=== PATIENT | male | born 1945 | race Caucasian/White ===

== ENCOUNTER 2016-02-13 14:17 | Inpatient (IN) | payer OTHER ==
[~2016-02-13 14:17] MED LIST: SALINE LOCK IV FLUID XX ONE; TYLENOL PO PRN
[2016-02-13] MEDS: GLUCOPHAGE PO SCH (18:07)
[2016-02-13] MEDS: PRILOSEC PO SCH (18:07)
[2016-02-13 18:35] LABS: MANUAL DIFF NEEDED? NO
[2016-02-13 18:37] LABS: BASO% 0.7 % (0.0-0.8); EOS% 5.2 % (0.0-10.0); HEMATOCRIT 30.8 % (42.0-52.0); HEMOGLOBIN 9.2 g/dL (14.0-18.0); LYMPH# 1.19 X1000 (1.2-3.4); LYMPH% 20.6 % (20.5-51.1); MCH 23.7 PG (27-31); MCHC 29.9 g/dL (33-37); MCV 79.2 FL (81-99); MONO# 0.72 X1000 (0.11-0.59); MONO% 12.4 % (1.7-9.3); MPV 10.1 FL (7.4-10.4); NEUT% 61.1 % (42.2-75.2); PLT 118 X1000 (130-400); RBC 3.89 XMIL (4.7-6.1)
[2016-02-13 18:47] LABS: INR 1.23; PROTIME 13.1 Seconds (9.2-11.7); PTT 27.9 Seconds (22.0-36.0)
[2016-02-13 18:59] LABS: AGAP 16; ALBUMIN 3.3 g/dL (3.5-5.0); ALKALINE PHOSPHATASE 84 U/L (32-122); BUN 16 mg/dL (8-22); CALCIUM 8.1 mg/dL (8.8-10.2); CHLORIDE 98 mmol/L (98-107); COSMO 278; GOT 38 U/L (10-34); GPT 24 U/L (10-44); MAGNESIUM 1.7 mg/dL (1.5-2.7); POTASSIUM 4.4 mmol/L (3.5-5.1); SODIUM 136 mmol/L (136-145); TCO2 22 mmol/L (25-35); TOTAL BILIRUBIN 1.55 mg/dL (0.20-1.00); TOTAL PROTEIN 6.1 g/dL (6.3-8.3)
[2016-02-13] MEDS: CORGARD PO SCH (21:17)
[2016-02-13] MEDS: LANTUS SUBQ SCH (21:18)
[2016-02-13] MEDS: LASIX IV SCH (21:19)
[2016-02-14] MEDS: PRILOSEC PO SCH ×2 (06:17→18:01)
[2016-02-14] MEDS ORDERED: INSULIN PEN NEEDLES ONE (07:47)
[2016-02-14] MEDS: GLUCOPHAGE PO SCH ×2 (09:10→16:32)
[2016-02-14] MEDS: LASIX IV SCH ×2 (09:10→21:57)
[2016-02-14] MEDS: KLOR-CON PO SCH (09:10)
--- NOTE | 2016-02-14 09:43 | PROGRESS NOTE ---
DATE: 02/14/2016 SUBJECTIVE: The patient has no complaints. He said he put out over a liter yesterday, through the evening and such. He was a little bit weak this morning, but otherwise feeling well. OBJECTIVE: Vital Signs: 98.7, 66, 18 and 131/61 with 98% saturation on room air. Fluid balance - 600 recorded in the chart. General: He is a well-developed, well-nourished, white male, in no acute distress. Respiratory: Patient has some basilar crackles. Good air movement. No wheezing. Cardiovascular: Regular. Extremities: Show 2+ edema. LABORATORIES: Yesterday's labs showed a hematocrit of 30.8. INR was slightly elevated at 1.2. Total bilirubin was 1.55. ProBNP 517. ASSESSMENT AND PLAN: 1. The patient's fluid overload status has cycled considerably over the last several months. For whatever reasons, outpatient therapy has not held him in any continuous or stable pattern. He was aggressively diuresed back in November, but has had gradual buildup of fluid despite treatment and the difficulties discerning whether his ischemic heart disease and modestly decreased ejection fraction are the culprit in his fluid overload versus his known history of cirrhosis causing ascites and lower extremity edema. The highest likelihood is a combination of both. I have consulted cardiology to help us design an outpatient regimen to keep this man out trouble. 2. The patient's diabetes is reasonably well controlled. 3. Cirrhosis. See above.
[2016-02-14] MEDS: BIDIL PO SCH ×2 (13:46→16:32)
--- NOTE | 2016-02-14 14:28 | CONSULTATION ---
DATE OF CONSULTATION: 02/14/2016 REASON FOR CONSULTATION: Edema. HISTORY: The patient is a very complex 70-year-old gentleman, with a history of non-alcoholic cirrhosis and portal hypertension. The patient has been having difficulties with recurring swelling of the lower extremities. The patient was aggressively diuresed several months ago. Per report, he actually was diuresed to the point that he had mild renal insufficiency. His medications have been adjusted and he has been slowly retaining fluid since that period of time. He states that during this period of time he has had increased abdominal girth with increased shortness of breath. This shortness of breath is most likely related to distention of the abdomen. The patient has not had orthopnea. He has not had overt chest pain. He has had weight gain associated with this. The patient does have a mild cardiomyopathy. Echocardiogram performed in October of this year indicated an ejection fraction of around 45-50%. The patient's heart is dilated with estimated intracardiac pressures appear to be stable and not markedly elevated. There did not appear to be significant pulmonary hypertension. PAST MEDICAL HISTORY: Again, the patient has non-alcoholic cirrhosis, followed by GI at [facility]. The patient most likely has underlying stable coronary disease. Nuclear stress test would indicate an anterior scar. There is mild wall motion abnormality on echo within this distribution as well. The patient has never had a stent or revascularization procedure. The patient has a history of type 2 diabetes treated medically. He has had mild hypertension treated medically. There is no history of dyslipidemia. He has no documented pulmonary or thyroid disease. No previously documented renal disease. SOCIAL HISTORY: No tobacco, alcohol, or illicit drug use. FAMILY HISTORY: Noncontributory. REVIEW OF SYSTEMS: He has been in good health. No recent illnesses. No fevers or chills.HEENT: No headache. No visual abnormalities. Chest: No palpitations, no orthopnea. Abdomen: No abdominal pain. No diarrhea. No constipation. Extremities: He has not had pain or erythema, just significant swelling. Neurological: No history of seizures, syncope, or stroke. PHYSICAL EXAMINATION: General: This is a well-developed male. He is awake and alert. He appears comfortable. HEENT: Benign. Neck: Supple. No obvious jugular venous distention. Chest: Bilateral breath sounds, which are clear. Slightly depressed, but no wheezing or crackles. Cardiovascular: Reveals a regular rate and rhythm. I hear no murmur. Abdomen: Distended. There may be mild hepatomegaly. Extremities: There is 2/4 pitting edema to the level of the knees. There is also chronic venous stasis changes. LABORATORY WORK: I have reviewed laboratory work. White count 5, hemoglobin and hematocrit 9.2 and 30. Platelet count is 118,000. INR is 1.23. Sodium 136, potassium 4.4, chloride 98, bicarb 22, BUN 16, creatinine 0.6. Glucose 179. Calcium 8.1, AST 38, ALT 24. Pro-B-type natriuretic peptide is not severely elevated at 517. Total protein is 6.1, albumin is 3.3. TSH is 2.88. IMPRESSION/PROBLEMS: Edema. This most likely represents primarily hepatic issue, in the setting of portal hypertension. Echocardiogram would indicate that cardiac status is relatively compensated. At this time I think it would not be unreasonable; however, to try optimize all preload and afterload conditions of the heart. We will add nitrates and hydralazine in the form of BiDil. This may hopefully unload the heart slightly and allow slightly better venous return into the heart to assist with the edematous state. I would continue Lasix. The patient has been on high-dose Aldactone in the past. We will discuss possibly restarting a lower dosage of this, at possibly 25 mg a day, as this would be the most optimal diuretic if patient's renal function will tolerate this. Certainly, if edema persists, then one could consider right heart catheterization to more accurately define right heart pressures. If these were markedly elevated, and we could not consistently diurese patient, then ultrafiltration would potentially be an option.
[2016-02-14] MEDS: ZOFRAN IV PRN ×2 (14:39→18:40)
[2016-02-14] MEDS: CORGARD PO SCH (21:57)
[2016-02-14] MEDS: LANTUS SUBQ SCH (22:06)
[2016-02-15] MEDS: PRILOSEC PO SCH ×2 (06:58→18:27)
[2016-02-15] MEDS: GLUCOPHAGE PO SCH ×2 (08:45→18:27)
[2016-02-15] MEDS: LASIX IV SCH ×4 (08:46→23:30)
[2016-02-15] MEDS: KLOR-CON PO SCH (08:46)
[2016-02-15] MEDS: BIDIL PO SCH ×3 (08:46→18:27)
[2016-02-15 09:49] LABS: MANUAL DIFF NEEDED? NO
[2016-02-15 09:53] LABS: BASO% 0.3 % (0.0-0.8); EOS% 1.3 % (0.0-10.0); HEMATOCRIT 28.9 % (42.0-52.0); HEMOGLOBIN 8.6 g/dL (14.0-18.0); IMM GRAN# 0.02 X1000 (0.0-0.04); IMM GRAN% 0.3 % (0.0-0.5); LYMPH# 1.11 X1000 (1.2-3.4); LYMPH% 14.2 % (20.5-51.1); MCH 23.7 PG (27-31); MCHC 29.8 g/dL (33-37); MCV 79.6 FL (81-99); MONO# 0.89 X1000 (0.11-0.59); MONO% 11.4 % (1.7-9.3); MPV 10.4 FL (7.4-10.4); NEUT% 72.5 % (42.2-75.2); PLT 114 X1000 (130-400); RBC 3.63 XMIL (4.7-6.1)
[2016-02-15 10:16] LABS: AGAP 16; BUN 29 mg/dL (8-22); CALCIUM 7.7 mg/dL (8.8-10.2); CHLORIDE 97 mmol/L (98-107); COSMO 281; POTASSIUM 4.7 mmol/L (3.5-5.1); SODIUM 135 mmol/L (136-145); TCO2 22 mmol/L (25-35)
[2016-02-15] MEDS ORDERED: IMODIUM PO ONE (11:25)
--- NOTE | 2016-02-15 12:22 | PROGRESS NOTE ---
DATE: 02/15/2016 SUBJECTIVE: The patient was sick and vomited twice yesterday. He also states he has diarrhea which even predated his hospitalization. He had never told me that before. He does not want any food and has very little appetite. He wants to try clear liquids because the food is unappetizing for him at the present time. He states his urine output has not been drastically accelerated with the use of IV Lasix. OBJECTIVE: Vital Signs: 97.8, 67, 124/46. PHYSICAL EXAMINATION: General: He is a well-developed, white male, in no acute distress. He sighs a lot as he is talking and breathing as if he is moderately short of breath. Lungs: Clear. Cardiovascular: Regular. Abdomen: Distended. Bowel sounds are present. He clearly has ascites. Extremities: He has 3+ edema in the lower extremities which is not appreciably diminished compared to his baseline examination. Neurologic: He is intact. LABORATORIES: BUN is elevated at 29. Creatinine 1.0. Blood sugar is well controlled. Hemoglobin is 8.6, hematocrit 28.9. Platelet count is 114,000. ASSESSMENT AND PLAN: 1. The patient's fluid overload status is likely multifactorial but the hepatic dysfunction is the primary route sales driver of the fluid overload. I discussed restarting Aldactone with the patient and he agreed that we should do this. I have also increased his Lasix and will continue to monitor urine output as well as his BUN and creatinine. 2. 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 Vasodilators have been added. 3. Patient's nausea and vomiting has been addressed with p.r.n. medications. I will add some Imodium for his diarrhea. We have changed his diet to clear liquids to hopefully help him have a little bit of intake. He was warned though that this diet though may be not conducive to overall diuresis based on the amount of liquid and the relatively high sodium content associated with a liquid diet. 4. Patient's diabetes is well controlled.
[2016-02-15] MEDS: MAG-OX PO SCH (12:29)
[2016-02-15] MEDS: ALDACTONE PO SCH (12:29)
[2016-02-15] MEDS: LANTUS SUBQ SCH (21:46)
[2016-02-15] MEDS: CORGARD PO SCH (21:47)
[2016-02-15] MEDS: ZOFRAN IV PRN (21:48)
[2016-02-16] MEDS: PRILOSEC PO SCH ×2 (06:17→19:10)
[2016-02-16 06:44] LABS: MANUAL DIFF NEEDED? NO
[2016-02-16 06:48] LABS: BASO% 0.5 % (0.0-0.8); EOS% 2.3 % (0.0-10.0); HEMATOCRIT 29.8 % (42.0-52.0); IMM GRAN# 0.02 X1000 (0.0-0.04); IMM GRAN% 0.2 % (0.0-0.5); LYMPH# 1.41 X1000 (1.2-3.4); LYMPH% 16.4 % (20.5-51.1); MCH 23.9 PG (27-31); MCHC 30.2 g/dL (33-37); MCV 79.3 FL (81-99); MONO% 10.4 % (1.7-9.3); MPV 10.5 FL (7.4-10.4); NEUT% 70.2 % (42.2-75.2); PLT 158 X1000 (130-400); RBC 3.76 XMIL (4.7-6.1)
[2016-02-16 07:12] LABS: CALCIUM 7.9 mg/dL (8.8-10.2); POTASSIUM 4.5 mmol/L (3.5-5.1)
[2016-02-16] MEDS: KLOR-CON PO SCH (11:54)
[2016-02-16] MEDS: GLUCOPHAGE PO SCH ×2 (11:55→17:50)
[2016-02-16] MEDS: MAG-OX PO SCH (11:55)
[2016-02-16] MEDS: LASIX IV SCH ×3 (11:55→23:45)
[2016-02-16] MEDS: ALDACTONE PO SCH (11:55)
[2016-02-16] MEDS: BIDIL PO SCH ×3 (11:55→22:01)
--- NOTE | 2016-02-16 12:32 | PROGRESS NOTE ---
DATE: 02/16/2016 SUBJECTIVE: The patient's chart was reviewed. In summary, the patient was admitted on 02/13/2016 secondary to volume overload. The patient has a long-standing history of nonalcoholic fatty liver disease, associated cirrhosis and mild systolic heart failure with ejection fraction of 40%-45%. Per the patient's report, he had gained approximately 40 pounds over the course of the last 3-4 weeks. He had associated shortness of breath and fatigue. He also supported intermittent nausea, vomiting, and diarrhea. Since hospitalized, Cardiology was consulted and suggested this volume overload is likely more hepatic than cardiac in etiology. Vasodilators were added to his cardiac regimen. In addition, the patient has been treated with diuresis including Lasix and the addition of spironolactone. Nausea, vomiting, and diarrhea have been treated supportively with reasonable results. This morning, the patient states he continues to feel poorly. He complains of profound weakness with minimal exertion. He continues to complain of abdominal fullness as well as shortness of breath. He denies chest discomfort. He denies associated palpitations. He remains afebrile. OBJECTIVE: T-max 98.1 degrees, heart rate 61-74, respirations 20, blood pressure 106-128/46-61. General: No acute distress, chronic left Neff's palsy. Cardiovascular: Regular rate and rhythm. No significant murmurs, rubs, or gallops. Pulmonary: Clear to auscultation bilaterally. Abdomen is distended with apparent fluid present. Positive bowel sounds. Extremities: Moves all extremities well. 2+ lower extremity edema bilaterally with venous stasis changes. No clubbing or cyanosis. Dermatologic evaluation reveals venous stasis changes of bilateral lower extremities as described. LABORATORY DATA: White blood cell count 8.62, hemoglobin 9.0, hematocrit 29.8, platelet count is 158,000. Sodium 136, potassium 4.5, chloride 97, bicarb 21. BUN 38, creatinine 1.3, glucose 155. Calcium 7.9. ASSESSMENT AND PLAN: 1. Nonalcoholic fatty liver disease, associated cirrhosis - The patient does present volume overload. At this point, we will continue cautious, but aggressive diuresis with Lasix and spironolactone therapy. We will check an ammonia level in the morning. Should patient continue to have difficulty with diuresis, we will consider gastroenterology consultation for further evaluation and management and possible large volume paracentesis. If the patient has not previously had, we will also need to consider an EGD to evaluate for underlying esophageal varices. 2. Volume overload - As above, this likely is secondary to decompensating nonalcoholic fatty liver disease, cirrhosis. Heart-associated volume issues are also to be considered, but less likely. We will continue medications per cardiology. We will continue Lasix and spironolactone. We will remain aware that the patient's creatinine has increased to 1.3. If we are unable to diurese effectively without renal dysfunction, we will consider paracentesis. 3. Nausea, vomiting, diarrhea - The patient has achieved improvement with symptomatic management. We will remain aware. 4. Profound weakness - As above, the patient is unable to ambulate minimal distances without weakness and shortness of breath. I suspect this is simply secondary to his volume issue. We will continue aggressive management. We will encourage the patient to get out of bed for all meals. 5. Shortness of breath - We will continue oxygen per protocol. 6. Acute renal failure - The patient's creatinine has increased to 1.3 from admission of 0.6. We will continue to follow this with diuresis. If the patient's creatinine continues to rise, we likely will need to discontinue metformin therapy. 7. Diabetes - We will continue his current regimen, but discontinue metformin if creatinine rises above 1.5. DISPOSITION: At this point, the patient continues to require correction care in a hospital setting. We will plan discharge home once appropriate.
[2016-02-16] MEDS: CORGARD PO SCH (22:01)
[2016-02-16] MEDS: LANTUS SUBQ SCH (22:01)
[2016-02-17] MEDS: PRILOSEC PO SCH ×2 (06:10→22:20)
[2016-02-17 06:40] LABS: MANUAL DIFF NEEDED? NO
[2016-02-17 07:17] LABS: ALBUMIN 3.3 g/dL (3.5-5.0); CALCIUM 7.4 mg/dL (8.8-10.2); TOTAL BILIRUBIN 1.8 mg/dL (0.20-1.00)
[2016-02-17 07:26] LABS: BASO% 0.4 % (0.0-0.8); EOS# 0.23 X1000 (0.0-0.7); EOS% 2.9 % (0.0-10.0); HEMATOCRIT 28.5 % (42.0-52.0); HEMOGLOBIN 8.6 g/dL (14.0-18.0); IMM GRAN# 0.02 X1000 (0.0-0.04); IMM GRAN% 0.2 % (0.0-0.5); LYMPH# 1.18 X1000 (1.2-3.4); LYMPH% 14.6 % (20.5-51.1); MCHC 30.2 g/dL (33-37); MCV 79.4 FL (81-99); MONO# 0.99 X1000 (0.11-0.59); MONO% 12.3 % (1.7-9.3); MPV 10.6 FL (7.4-10.4); NEUT% 69.6 % (42.2-75.2); PLT 165 X1000 (130-400); RBC 3.59 XMIL (4.7-6.1)
[2016-02-17] MEDS: GLUCOPHAGE PO SCH (10:14)
[2016-02-17] MEDS: ALDACTONE PO SCH (10:14)
[2016-02-17] MEDS: KLOR-CON PO SCH (10:14)
[2016-02-17] MEDS: BIDIL PO SCH ×3 (10:14→17:25)
[2016-02-17] MEDS: MAG-OX PO SCH (10:14)
[2016-02-17] MEDS: IMODIUM PO PRN (12:10)
[2016-02-17] MEDS: LASIX IV SCH ×2 (12:10→23:33)
--- NOTE | 2016-02-17 15:12 | PROGRESS NOTE ---
DATE: 02/17/2016 SUBJECTIVE: Over the course of the last 24 hours, patient states, his overall condition is largely unchanged. He continues to experience intermittent loose stools. He continues to carry excess volume. He complains of shortness of breath with minimal exertion. He denies fevers, chills, palpitations, or chest discomfort. His nausea and vomiting are slowly improving. OBJECTIVE: Vital Signs: T-max is 98.1 degrees, heart rate of 59-71, respirations 14-23, blood pressure 108 to 120 over 51 to 54. General: Well nourished, well developed, in no acute distress. Cardiovascular: Regular rate and rhythm. No significant murmurs, rubs, or gallops. Pulmonary: Clear to auscultation on the right, decreased breath sounds at the left base. Abdomen: Distended with apparent fluid present. Positive bowel sounds. Extremities: Moves all extremities well. No significant clubbing or cyanosis. Patient has 1+ to 2+ lower extremity edema bilaterally. Dermatologic: Evaluation reveals venous stasis changes of bilateral lower extremities. LABORATORY DATA: White blood cell count 8.06, hemoglobin 8.6, hematocrit 28.5, platelet count a 165,000. Sodium 134, potassium 5.0, chloride 96, bicarb 22, BUN 47, creatinine 1.4, glucose 147, calcium 7.4. Total bilirubin 1.80, total protein 6.0, albumin 3.3, alkaline phosphatase 71, AST 38, ALT 22, ammonia 83. ASSESSMENT AND PLAN: 1. Nonalcoholic fatty liver disease with associated cirrhosis, decompensating. The patient continues to have volume overload despite spironolactone and Lasix therapy. Unfortunately, we are limited by the patient's renal function. Ammonia level is elevated. Recent CT scan of the abdomen and pelvis suggested underlying cirrhosis and portal hypertension without evidence of mass. For now, we will continue his current regimen. I am unable to add lactulose secondary to diarrhea as described below. While we could consider neomycin or Xifaxan, we will hold off on adding medications at present time. If patient's condition continues to progress, we will consider a gastroenterology consultation. 2. Volume overload. The patient is -200 mL from yesterday. We are having difficulty diuresing at this time. Again, we will continue his current regimen and consider a gastroenterology consultation for possible large volume paracentesis in the near future. 3. Nausea/vomiting. The patient has achieved some improvement. We will continue clear liquid diet. 4. Diarrhea. Unfortunately, this persists. We will discontinue patient's metformin as this may be contributing. We will treat supportively with Imodium therapy. 5. Profound weakness. This is significant. We will continue treatment as above. Patient may required rehabilitation at time of discharge. 6. Shortness of breath. The patient's overall condition is slightly improved. We will recheck a chest x-ray. We will continue oxygen per protocol. 7. Acute renal dysfunction. The patient's creatinine has increased to 1.4. At this point, the benefits of continuing diuresis outweigh the risk. We will continue to follow patient's status closely. 8. Diabetes. As above, we will discontinue metformin in the setting of persistent diarrhea. We will continue sliding scale insulin. DISPOSITION: At this point, patient continues to require long term care in the hospital setting. We will plan discharge home or to rehabilitation at the time of discharge once appropriate.
[2016-02-17] MEDS ORDERED: INSULIN PEN NEEDLES ONE (16:51)
[2016-02-17] MEDS: HUMALOG SUBQ SCH ×2 (17:25→22:28)
--- NOTE | 2016-02-17 18:31 | Diag Imaging Result Document ---
PROCEDURE NAME: CHEST-2 VIEWS - 02/17/2016 AP AND LATERAL CHEST: FINDINGS: The left costophrenic angle is blunted and there is apparently fluid in both posterior costophrenic angles. This was not the case of 12/05/2015. The inspiration is less optimal than on the previous study. IMPRESSION: Pleural effusion.
[2016-02-17] MEDS: CORGARD PO SCH (22:20)
[2016-02-17] MEDS: LANTUS SUBQ SCH (22:20)
[2016-02-18 06:19] LABS: MANUAL DIFF NEEDED? NO
[2016-02-18] MEDS: HUMALOG SUBQ SCH ×4 (06:29→22:21)
[2016-02-18] MEDS: PRILOSEC PO SCH ×2 (06:31→18:07)
[2016-02-18 07:12] LABS: BASO% 0.3 % (0.0-0.8); EOS# 0.18 X1000 (0.0-0.7); EOS% 2.7 % (0.0-10.0); HEMOGLOBIN 8.7 g/dL (14.0-18.0); LYMPH# 1.15 X1000 (1.2-3.4); LYMPH% 16.9 % (20.5-51.1); MCH 23.8 PG (27-31); MCV 79.2 FL (81-99); MONO# 0.81 X1000 (0.11-0.59); MONO% 11.9 % (1.7-9.3); MPV 10.4 FL (7.4-10.4); NEUT% 68.2 % (42.2-75.2); PLT 153 X1000 (130-400); RBC 3.66 XMIL (4.7-6.1)
[2016-02-18 08:01] LABS: ALBUMIN 3.2 g/dL (3.5-5.0); CALCIUM 7.6 mg/dL (8.8-10.2); POTASSIUM 4.4 mmol/L (3.5-5.1); TOTAL BILIRUBIN 1.72 mg/dL (0.20-1.00)
[2016-02-18] MEDS: MAG-OX PO SCH (08:53)
[2016-02-18] MEDS: KLOR-CON PO SCH (08:54)
[2016-02-18] MEDS: BIDIL PO SCH ×3 (08:54→18:07)
[2016-02-18] MEDS: ALDACTONE PO SCH (08:54)
--- NOTE | 2016-02-18 10:07 | PROGRESS NOTE ---
DATE: 02/18/2016 SUBJECTIVE: Patient states that he continues to swell up. He has poor urine output. His shortness of breath with exertion continues. His diarrhea has abated with the addition of some Imodium. OBJECTIVE: Vital Signs: Temperature 97.7, pulse 57, respirations 20, blood pressure 117/58. Fluid balance -560. PHYSICAL EXAM: General: He is a well-developed, white male, in no acute distress. Patient has decreased breath sounds in the bases of both lungs consistent with pleural effusion. He now has swelling in both arms and hands as well as his legs and his abdomen. Cardiovascular: Regular. Neurological/Psychologically: He is at baseline. Has no deficits. LABORATORY: White cell count 6.7, hematocrit 29.0, serum electrolytes show a BUN of 52, creatinine 1.3. Liver function tests are grossly normal with the exception of a slightly elevated bilirubin 1.72. ASSESSMENT AND PLAN: 1. After multiple days in the hospital with diuretics, the patient continues to have overt swelling. Has had basically no relief from his shortness of breath. As per Dr. Villarreal' note over the weekend, I think we are obligated to attempt a large volume paracentesis. I have ordered ultrasound and hopefully radiology will be able the take off some fluid in this regard. I believe he is stable enough to tolerate the procedure and it was explained to him. 2. I have consulted Dr. Martinez for help with management of his cirrhosis. I have also ordered stool studies and Dr. Martinez can address these as well. 3. I have consulted Dr. Shaver due to the patient's chronic renal insufficiency and poor response to diuretic therapy. I ordered a renal ultrasound to assess kidney size. 4. Patient's diabetes is reasonably well controlled. 5. The patient continues to require inpatient therapy. Consultants and procedures were outlined for him and those orders were written for today.
[2016-02-18] MEDS: LASIX IV SCH ×2 (11:50→22:32)
--- NOTE | 2016-02-18 15:23 | Diag Imaging Result Document ---
PROCEDURE NAME: US ABDOMEN-COMPLETE - 02/18/2016 ABDOMINAL ULTRASOUND: FINDINGS: This study is markedly technically suboptimal. The liver is somewhat nodular and hyperechoic in appearance consistent with cirrhosis. There is ascites. The aorta and inferior vena cava are normal where they are visible. There is antegrade flow in the portal vein. There is a 2.2 cm cyst anteriorly in the right kidney. There is no evidence of hydronephrosis or mass on either side. The visualized portion of the pancreas is unremarkable in appearance. However, most of the body and the tail in its entirety are not visible. The spleen is enlarged measuring over 18 cm in two planes. There is no evidence of biliary dilatation and the common bile duct measures 6 mm. The urinary bladder is not particularly distended. The gallbladder is surgically absent. Compared to the previous examination of 08/21/2014 the ascites was not present previously. IMPRESSION: 1. Cirrhosis with ascites and splenomegaly. 2. No evidence of obstructive uropathy.
--- NOTE | 2016-02-18 16:50 | CONSULTATION ---
DATE OF CONSULTATION: 02/18/2016 REASON FOR CONSULTATION: Abnormal kidney function in the context of cirrhosis. HISTORY OF PRESENT ILLNESS: Mr. Ortiz is a 70-year-old white male who states he has been aware of liver disease since the 70s. In this context, he has had worsening swelling and shortness of breath over a period of months, but this has been much worse in the last several weeks. Back in October and November he required treatment and received diuretic therapy as an outpatient with some transient improvement, but his symptoms have since recurred and worsened, and ultimately leading to admission to the hospital. He has been in the hospital now for about a week, being admitted on the 12 of February. In this context, he has been treated with diuretic therapy and he has been in negative fluid balance, though modest since admission. Specifically, he is about 2 L negative over that period of time. He has undergone abdominal imaging with an ultrasound today which demonstrated cirrhosis with ascites and splenomegaly, but no obstruction with regard to the kidneys. We are asked to see him to assist in his care. PAST MEDICAL HISTORY: As above. He also has diabetes. HOME MEDICATIONS: Insulin, Zofran, amiloride, furosemide, metformin, metoclopramide, nadolol, omeprazole. ALLERGIES: Penicillin and aspirin. SOCIAL HISTORY: No alcohol or tobacco. FAMILY HISTORY: Not germane. REVIEW OF SYSTEMS: Positive for his shortness of breath, orthopnea, swelling, abdominal distention, et cetera. PHYSICAL EXAMINATION: Vital Signs: Blood pressure 121/62, heart rate 60, respirations 20, afebrile. Generally: He is a chronically ill, elderly man, lying at 30 degrees in no distress. Skin: Warm and dry. Conjunctivae are pink. Pupils are equal. Oropharynx is moist. Normal dentition. Neck: Supple. Trachea is midline. Jugular venous wave is not appreciated. Heart: Regular with a gallop. Lungs: Have equal breath sounds. Shallow, a few crackles. Abdomen: Distended with a fluid wave. Bowel sounds are present. No organomegaly. Extremities: Have 3+ edema. No clubbing or cyanosis. Neurologic: Grossly nonfocal. LABORATORY DATA: Sodium 132, potassium 4.4, chloride 94, bicarbonate 21, BUN 52, creatinine 1.3, bilirubin 1.7, albumin is 3.2, hemoglobin is 8.7. IMPRESSION: Prerenal azotemia in the context of nonalcoholic cirrhosis. We will check urine electrolytes and UA et cetera overnight. I agree with your diuretic therapy currently. His potassium is normal now, so we could probably increase his spironolactone. He might benefit also from albumin therapy, but again we will wait on his current electrolytes. I will stop his potassium supplement for now and observe.
[2016-02-18 18:48] LABS: URINE MICRO REVIEW NEEDED? NO; URINE SOURCE CATH
[2016-02-18 18:54] LABS: BILIRUBIN URINE NEGATIVE (NEGATIVE); BLOOD URINE NEGATIVE (NEGATIVE); COLOR YELLOW; GLUCOSE URINE NEGATIVE (NEGATIVE); LEUKOCYTES URINE NEGATIVE (NEGATIVE); NITRITE URINE NEGATIVE (NEGATIVE); PROTEIN URINE NEGATIVE (NEGATIVE); SP GRAVITY URINE 1.011; TURBIDITY URINE CLEAR (CLEAR); UROBILINOGEN URINE NORMAL (NORMAL)
[2016-02-18 18:55] LABS: UR EPITHELIAL CELLS <10 /HPF (<10); URINE BACTERIA NEGATIVE /HPF; URINE RBC <10 /HPF (<10); URINE WBC <10 /HPF (<10)
[2016-02-18 19:04] LABS: UR CREAT RANDOM 84.8 mg/dL (14-26); UR PROT RANDOM 12.3 mg/dL
[2016-02-18] MEDS: CORGARD PO SCH (22:14)
[2016-02-18] MEDS: LANTUS SUBQ SCH (22:15)
[2016-02-19] MEDS: HUMALOG SUBQ SCH ×4 (06:32→23:00)
[2016-02-19] MEDS: PRILOSEC PO SCH ×2 (06:35→18:36)
[2016-02-19 06:41] LABS: HEMOGLOBIN 8.5 g/dL (14.0-18.0); MCH 24.3 PG (27-31); MCHC 30.4 g/dL (33-37); MPV 10.3 FL (7.4-10.4); RBC 3.5 XMIL (4.7-6.1)
[2016-02-19 07:21] LABS: AGAP 16; ALBUMIN 3.3 g/dL (3.5-5.0); ALKALINE PHOSPHATASE 73 U/L (32-122); BUN 48 mg/dL (8-22); CALCIUM 7.6 mg/dL (8.8-10.2); CHLORIDE 96 mmol/L (98-107); COSMO 284; GOT 29 U/L (10-34); GPT 21 U/L (10-44); POTASSIUM 3.8 mmol/L (3.5-5.1); SODIUM 135 mmol/L (136-145); TCO2 23 mmol/L (25-35); TOTAL BILIRUBIN 1.86 mg/dL (0.20-1.00); TOTAL PROTEIN 5.5 g/dL (6.3-8.3)
--- NOTE | 2016-02-19 08:50 | PROGRESS NOTE ---
DATE: 02/19/2016 SUBJECTIVE: The patient is alert, oriented and is very talkative. We discussed the overall plan for production in his fluid volume as outlined by Dr. Sivakumar east and Dr. Thacker's consult. He expressed understanding and is willing to proceed. OBJECTIVE: Vital Signs: 98.0, 55, 117/50. General: Physical examination in general, he is a well-developed, white male, in no acute distress. Integumentary: He does have edema in his arms and legs. He has ascites. Cardiovascular: Regular bradycardia. Fluid balance shows a - 560. LABORATORY STUDIES: White cell count 5.7, hematocrit is 28. BUN is 48. Creatinine is 1.1. Blood sugars appear to be well controlled. No significant change in liver function tests. ASSESSMENT AND PLAN: 1. The patient is scheduled for a paracentesis procedure today, for hopefully large volume reduction of his ascites. Appropriate studies will be sent off from his fluid. This will be done under ultrasound guidance. 2. Patient's diuresis continues, albeit slowly. His creatinine improved to 1.1 today. 3. Diabetes is well controlled.
--- NOTE | 2016-02-19 09:48 | Diag Imaging Result Document ---
PROCEDURE NAME: US PARACENTESIS - 02/19/2016 ULTRASOUND-GUIDED PARACENTESIS: COMPARISON: 02/18/2016. TECHNIQUE: The risks and benefits of the procedure were discussed with the patient. All questions were answered. Written and verbal informed consent was obtained. Ultrasound scanning demonstrated a small amount of ascites. Overlying skin was prepped and draped in sterile fashion. Anesthesia was achieved with injection of 8 mL of 1% lidocaine. The paracentesis catheter was advanced without difficulty until the return of relatively clear ascites. 1.5 L was withdrawn using vacuum bottles. The catheter was removed intact. The patient reported no symptoms from the procedure. IMPRESSION: Successful and uncomplicated ultrasound-guided paracentesis.
[2016-02-19 10:04] LABS: DIFF NEEDED? YES; WBC BF 273 /cumm
[2016-02-19] MEDS: ALDACTONE PO SCH (10:13)
[2016-02-19] MEDS: BIDIL PO SCH ×3 (10:13→18:35)
[2016-02-19] MEDS: MAG-OX PO SCH (10:14)
[2016-02-19 10:15] LABS: MONOS 90 %; POLYS 10 %
[2016-02-19 10:49] LABS: TOTAL PROT BODY FLUID 0.8 g/dL
[2016-02-19] MEDS: LASIX IV SCH ×2 (12:46→23:00)
--- NOTE | 2016-02-19 16:31 | PROGRESS NOTE ---
DATE: 02/19/2016 TIME SEEN: 12:30 p.m. SUBJECTIVE: Patient currently resting in bed. He states that his breathing is better since his paracentesis. OBJECTIVE: Vital Signs: Temperature 98.3 degrees, pulse 63, respiratory rate 20, blood pressure 126/55. Intake 650 mL. Output 250 mL. PHYSICAL EXAMINATION: General: This is an elderly, chronically ill-appearing gentleman, resting in bed and no acute distress. He is awake, alert, oriented x3. HEENT: Normocephalic atraumatic. Conjunctivae are pink. ERWIN, oral mucosa moist. Neck: Supple. There is no JVD noted. Cardiovascular: Regular rate and rhythm. S4. Pulmonary: He has equal excursion. He is clear bilaterally with no increased work of breathing. He has decreased breath sounds to the bases. Abdomen: Remains mildly distended and soft. He has positive bowel sounds. : Not inspected. He is voiding. Extremities: 3+ pretibial edema. No clubbing or cyanosis. He is moving his extremities. Integumentary: Skin is warm and dry otherwise. LABORATORY DATA: WBC of 5.7, hemoglobin 8.5. Sodium 135, potassium 3.8, CO2 23 , BUN 48, creatinine 1.1, calcium 7.6, albumin 3.3. ASSESSMENT AND PLAN: Prerenal azotemia in the context of nonalcoholic steatohepatitis. His renal function has improved overnight. We agree with current treatment and have no additions at this time. We will continue to monitor secondary to the nonalcoholic steatohepatitis in the event that he has changes and our assistance can be of benefit. Seen, data reviewed, discussed with Ramsey Caputo on 02/18/15. I agree with the above assessment and plan of care. rg Dictated by RUTH Bell for Jordan Shaver MD [facility]
[2016-02-19] MEDS: LANTUS SUBQ SCH (23:00)
[2016-02-19] MEDS: CORGARD PO SCH (23:00)
[2016-02-20 06:42] LABS: HEMATOCRIT 29.3 % (42.0-52.0); HEMOGLOBIN 8.8 g/dL (14.0-18.0); MCH 24.2 PG (27-31); MCV 80.7 FL (81-99); MPV 9.4 FL (7.4-10.4); RBC 3.63 XMIL (4.7-6.1)
[2016-02-20] MEDS: HUMALOG SUBQ SCH ×4 (06:49→21:44)
[2016-02-20] MEDS: PRILOSEC PO SCH ×2 (06:49→18:08)
[2016-02-20 07:16] LABS: AGAP 14; ALBUMIN 3.2 g/dL (3.5-5.0); BUN 38 mg/dL (8-22); CALCIUM 7.6 mg/dL (8.8-10.2); CHLORIDE 98 mmol/L (98-107); COSMO 287; POTASSIUM 3.5 mmol/L (3.5-5.1); SODIUM 138 mmol/L (136-145); TCO2 26 mmol/L (25-35)
--- NOTE | 2016-02-20 08:39 | PROGRESS NOTE ---
DATE: 02/20/2016 SUBJECTIVE: Patient is currently resting in bed. He has no complaints overnight. States his urine output has been picking up. OBJECTIVE: Vital Signs: Temperature 97.7 degrees pulse 61, respiratory rate 15 , blood pressure 121/55. Intake and output: Intake was not recorded. Output 1.8 L of urine plus 1.5 L of paracentesis removal. General: Elderly, chronically ill-appearing gentleman, resting in bed. No acute distress. HEENT: Normocephalic, atraumatic. ERWIN, oral mucosa moist. Neck: Supple. Trachea midline. Cardiovascular: Regular rate and rhythm. S4. Pulmonary: Equal excursion. He is clear bilaterally without increased work of breathing. Abdomen: Remains mildly distended but soft with positive bowel sounds. : Not inspected. He continues to void. Extremities: He has 2 to 3+ pretibial edema. No clubbing or cyanosis. He does have vascular changes noted bilateral lower extremities. Integumentary: Skin is warm and dry otherwise. LAB DATA: WBC of 5.4, hemoglobin 8.8, platelet count 122,000. Sodium 138, potassium 3.5, CO2 26, BUN 38, creatinine 0.9, albumin 3.2. ASSESSMENT AND PLAN: Prerenal azotemia in the context of nonalcoholic steatohepatitis. His renal function has improved to normal. I adjusted his diuretics yesterday. No other changes today. At this point, we have nothing further to add and will sign off. If his situation changes, please feel free to consult us. rg Seen, data reviewed, discussed with Ramsey Caputo on 02/20/16. I agree with the above assessment and plan of care. rg Dictated by RUTH Bell for Jordan Shaver MD [facility]
[2016-02-20] MEDS: BIDIL PO SCH ×3 (08:51→17:52)
[2016-02-20] MEDS: ALDACTONE PO SCH (08:51)
--- NOTE | 2016-02-20 09:04 | PROGRESS NOTE ---
DATE: 02/20/2016 SUBJECTIVE: The patient has no complaints. He had a large volume paracenteses yesterday, which he tolerated quite well. He stated that he feels slightly better today. His breathing has improved. He continues to have gross swelling throughout his body. His breathing is slightly improved. He states that they had difficulty drawing blood today because of the swelling in his arms. OBJECTIVE: Vital Signs: 97.9, pulse rate 55, blood pressure 112/51. General: On physical exam, he is a well-developed, white male, in no acute distress. He is alert, oriented, conversive and appropriate. Lungs: The patient's lungs are clear. I feel like he has better expansion compared to previous exams. There are no rales present. Extremities: The patient's upper and lower extremities are swollen with 2+ edema. : He has scrotal and penile edema. He has ascites. LABORATORIES: Hematocrit 29.3, BUN is 38, creatinine is 0.9. Blood sugars are reasonably controlled over the course of hospitalization. Albumin is 3.2. ASSESSMENT AND PLAN: 1. The patient's ascites and whole-body swelling are slowly responding. His large volume paracentesis helped achieve a much larger negative fluid balance. 2. The patient's renal function seems to have recovered. We will continue the Lasix IV. Spironolactone 50 mg daily and I will add metolazone for 3 days. This was the nair to his successful diuresis in the past. We will continue to monitor kidney function. Dr. Shaver has signed off. 3. Diabetes is well controlled. 4. Patient's blood pressure is running a little bit low. We will continue to monitor this.
[2016-02-20] MEDS: IMODIUM PO PRN (10:59)
[2016-02-20] MEDS: LASIX IV SCH ×2 (10:59→23:00)
[2016-02-20] MEDS: ZAROXOLYN PO SCH (10:59)
[2016-02-20] MEDS: CORGARD PO SCH (21:44)
[2016-02-20] MEDS: LANTUS SUBQ SCH (21:44)
[2016-02-21] MEDS: HUMALOG SUBQ SCH ×4 (06:40→22:26)
[2016-02-21] MEDS: PRILOSEC PO SCH ×2 (06:40→18:19)
[2016-02-21 06:41] LABS: HEMATOCRIT 30.9 % (42.0-52.0); HEMOGLOBIN 9.4 g/dL (14.0-18.0); MCH 24.3 PG (27-31); MCHC 30.4 g/dL (33-37); MCV 79.8 FL (81-99); MPV 10.3 FL (7.4-10.4); RBC 3.87 XMIL (4.7-6.1)
[2016-02-21 07:19] LABS: AGAP 16; BUN 30 mg/dL (8-22); CALCIUM 7.4 mg/dL (8.8-10.2); CHLORIDE 95 mmol/L (98-107); COSMO 281; POTASSIUM 3.8 mmol/L (3.5-5.1); SODIUM 136 mmol/L (136-145); TCO2 25 mmol/L (25-35)
[2016-02-21] MEDS: ZAROXOLYN PO SCH (09:34)
[2016-02-21] MEDS: ALDACTONE PO SCH (09:34)
[2016-02-21] MEDS: IMODIUM PO PRN (09:34)
[2016-02-21] MEDS: BIDIL PO SCH ×3 (09:34→16:55)
--- NOTE | 2016-02-21 09:49 | PROGRESS NOTE ---
DATE: 02/21/2016 SUBJECTIVE: The patient states that he slept quite well last night despite having to get up to urinate. He feels better today then he has felt throughout his hospitalization. He feels like his swelling is down and that his breathing has improved. OBJECTIVE: Vital Signs: 98.3, 54, 18, 114/58. Fluid balance: The patient had -2850 out yesterday. Intake was not recorded. Physical Examination: Extremities: The patient's left arm and hand are still swollen but this looks more along the lines of an IV infiltration than true edema. The right hand and arm edema has improved. Lower extremity edema has improved significantly. It is 1+ up into the thigh. He continues to have ascites. LABORATORIES: Hematocrit is 30.9. Creatinine is down to 0.9 with a BUN of 30. Blood sugars are well controlled. Albumin has dropped slightly to 3. ASSESSMENT AND PLAN: 1. The patient has clearly undergone a large volume diuresis with the addition of metolazone. It may be also that the increase in his Aldactone dose has just not taken effect as that sometimes can lag for days. I plan to keep him on the metolazone for additional 2 days and try and get more large volume diuresis. No significant findings from his paracentesis study. 2. Dr. Thacker contacted the branch administrator at [facility] that the patient has seen before and has arranged for followup after discharge. The patient's renal insufficiency seems to have resolved. 3. Diabetes, well controlled. I expect that the patient will need to be in the hospital an additional 48 hours in order to achieve appropriate levels of diuresis so that he can be maintained as an outpatient.
[2016-02-21] MEDS: LASIX IV SCH ×2 (10:34→22:25)
[2016-02-21] MEDS: LANTUS SUBQ SCH (22:27)
[2016-02-21] MEDS: CORGARD PO SCH (22:29)
[2016-02-22] MEDS: LASIX IV SCH (05:59)
[2016-02-22] MEDS: PRILOSEC PO SCH ×2 (06:40→18:10)
[2016-02-22 07:19] LABS: HEMATOCRIT 28.9 % (42.0-52.0); HEMOGLOBIN 8.7 g/dL (14.0-18.0); MCH 24.4 PG (27-31); MCHC 30.1 g/dL (33-37); MCV 81.2 FL (81-99); RBC 3.56 XMIL (4.7-6.1)
[2016-02-22] MEDS: HUMALOG SUBQ SCH ×4 (07:37→22:01)
[2016-02-22 07:38] LABS: AGAP 12; ALBUMIN 2.9 g/dL (3.5-5.0); BUN 26 mg/dL (8-22); CALCIUM 7.4 mg/dL (8.8-10.2); CHLORIDE 93 mmol/L (98-107); COSMO 276; POTASSIUM 2.8 mmol/L (3.5-5.1); SODIUM 135 mmol/L (136-145); TCO2 30 mmol/L (25-35)
[2016-02-22] MEDS: BIDIL PO SCH ×3 (08:47→17:46)
[2016-02-22] MEDS: ALDACTONE PO SCH (08:47)
[2016-02-22] MEDS: ZAROXOLYN PO SCH (08:47)
[2016-02-22] MEDS: KLOR-CON PO SCH ×2 (08:52→22:02)
[2016-02-22] MEDS: LASIX PO SCH (08:53)
[2016-02-22] MEDS: MAG-OX PO SCH (08:53)
--- NOTE | 2016-02-22 09:35 | PROGRESS NOTE ---
DATE: 02/22/2016 SUBJECTIVE: The patient states that emotionally he is losing control. He is very sad that he has been in the hospital for 10 days. He does think that he is getting better with each passing day though. I assured him that I was going to try and get him home this weekend, that we had a few parameters that needed to be tuned up prior to discharge. Most notably, his low potassium from aggressive diuresis. OBJECTIVE: Vital Signs: 98.0, 54, 119/51, fluid balance -1258. General: On physical exam, the patient still has whole-body swelling, including edema in the sacral area. One to 2+ lower extremity edema and 1+ edema in his hands, the left being worse than the right. Overall, this is improved from previous exams. Lungs: Patient's lungs are clear. He has good air movement. No crackles. Cardiovascular: Regular bradycardia. ASSESSMENT AND PLAN: 1. The patient's ascites and whole-body swelling are improving. His kidney function has remained intact with aggressive IV diuretics and the addition of metolazone. 2. The patient's potassium is down to 2.8. I plan to supplement potassium. Hopefully, when he is on a lower dose of Lasix at home and not on metolazone, he will not have as much difficulty maintaining his potassium levels. Magnesium was also added to his regimen. 3. Blood pressure is well controlled. 4. Diabetes well controlled. I expect the patient to be discharged home tomorrow assuming that all laboratory parameters are acceptable and his clinical status does not deteriorate.
[2016-02-22] MEDS: IMODIUM PO PRN (10:40)
--- NOTE | 2016-02-22 16:51 | CONSULTATION ---
DATE OF CONSULTATION: 02/18/2016 REFERRING PHYSICIAN: Flavio Stearns MD INDICATION FOR CONSULTATION: 1. New onset ascites. 2. Nausea with vomiting. 3. Diarrhea. 4. Cirrhosis. 5. Nonalcoholic fatty liver disease. 6. GERD. 7. Obesity. HISTORY OF PRESENT ILLNESS: The patient is a 70-year-old white male who was diagnosed with nonalcoholic fatty liver disease in 2009. He is currently followed by Dr. Young at [facility]. He did well with his liver disease and had no associated complications until November 2015 when he developed ascites for the 1st time. He was treated with aggressive diuresis but was admitted due to volume depletion and vomiting. He subsequently improved and was discharged to home on outpatient regimen. He was maintaining his weight with no recurrent edema until approximately 2 weeks prior to admission. He reports the acute onset of swelling in his abdomen, feet and hands. He presented to Dr. Stearns's office with swelling, shortness of breath and increased ascites as well as edema. He also noted the onset of diarrhea and heartburn as well as indigestion. He has known esophageal varices with a complication of his cirrhosis. We are asked to participate in his care. PAST MEDICAL HISTORY: 1. Thrombocytopenia. 2. Hepatic encephalopathy. 3. GERD. 4. Anemia. 5. Kidney stones. 6. Diabetes 2. 7. Micro albuminemia. 8. Nonalcoholic steatohepatitis with cirrhosis followed by Dr. Castro Young, [facility]. 9. Ascites. 10. Esophageal varices. 11. Obesity. 12. Gastric stasis. He is being treated for presumed gastroparesis. PAST SURGICAL HISTORY: 1. Cholecystectomy. 2. Tonsillectomy. SOCIAL HISTORY: Negative for alcohol, tobacco or recreational drug use. He is single and retired. FAMILY HISTORY: His father from complications of pneumonia. His mother had mitral valve replacement and rheumatic heart disease. From a health maintenance standpoint, his last colonoscopy was in September 2013. MEDICATION ALLERGIES: PENICILLIN. MEDICATIONS: At the time of admission. 1. Lantus. 2. Zofran. 3. Amiloride. 4. Lasix. 5. Metformin. 6. Reglan. 7. Nadolol. 8. Omeprazole. REVIEW OF SYSTEMS: Remarkable for shortness of breath and abdominal distention secondary to the ascites. He denies abdominal pain, nausea with vomiting, fever and chills. PHYSICAL EXAM: Vital signs: Blood pressure is 121/62, pulse is 60, respirations 20, temperature of 97.9 degrees. His oxygen saturation is 100%. HEENT: Negative for oropharyngeal mucosal membrane lesions. Pulmonary: Breath sounds are coarse. He has occasional rales in the bases bilaterally. These clear with coughing. Cardiovascular: He has regular rate and rhythm with no gallops, murmurs, or rubs. Abdominal Exam: Remarkable for abdominal distention secondary to ascites. He has normoactive bowel sounds. The abdomen soft and nontender. Extremities: Bilaterally are remarkable for 2+ pitting edema in both the upper and lower extremities. Neurologic Exam: Alert and oriented with no evidence of asterixis. OBJECTIVE DATA: Remarkable for hemoglobin of 8.7, hematocrit 29.0 and a white count of 6.79, has 153,000 platelets. On serum chemistry, his sodium is 132, potassium 4.4, chloride 94, CO2 21, BUN 52, creatinine 1.3 with a glucose of 78. Calcium is 7.6, total bilirubin 1.72, AST 33, ALT 21, alkaline phosphatase 72. Total protein 6.0 with an albumin of 3.2. On admission on 02/13/2016 his PT was 13.1 with an INR of 1.23. His PTT is 27.9. IMPRESSION: 1. Ascites. 2. Nausea with vomiting. 3. Diarrhea. 4. Cirrhosis. 5. Nonalcoholic fatty liver disease. 6. GERD. 7. Obesity. 8. Portal hypertension. RECOMMENDATION: 1. I recommend a large volume paracentesis in the morning. We have written orders for specific cultures of his fluid. 2. Because of the diarrhea, I recommend stool studies. If he has antibiotic associated diarrhea or C. difficile I would treat accordingly. If the stool studies are negative for infection, I would consider discontinuing the magnesium oxide as it is one of the medications that can be associated with diarrhea. If we find no other causes to explain his diarrhea I would check a lactoferrin and stool electrolytes. This will help us determine if he has a secretory versus osmotic diarrhea. 3. Continue Prilosec as you are doing. 4. Continue nadolol for portal hypertension. 5. Continue Lasix and spironolactone with careful attention to his electrolytes. 6. The patient's hemoglobin and hematocrit are decreasing. If they continued to decrease I would consider an EGD. 7. I will make contact with Dr. Young to give him an update and to arrange for followup when he is ready for discharge. 8. Additional recommendations to follow based on the results of his testing and his clinical course.
[2016-02-22] MEDS: LANTUS SUBQ SCH (22:01)
[2016-02-22] MEDS: CORGARD PO SCH (22:02)
[2016-02-23] MEDS: PRILOSEC PO SCH (06:11)
[2016-02-23] MEDS: HUMALOG SUBQ SCH (06:11)
[2016-02-23 07:03] LABS: AGAP 10; ALBUMIN 2.8 g/dL (3.5-5.0); BUN 27 mg/dL (8-22); CALCIUM 7.3 mg/dL (8.8-10.2); CHLORIDE 94 mmol/L (98-107); COSMO 276; POTASSIUM 3.1 mmol/L (3.5-5.1); SODIUM 134 mmol/L (136-145); TCO2 30 mmol/L (25-35)
[2016-02-23 07:14] LABS: HEMATOCRIT 27.7 % (42.0-52.0); HEMOGLOBIN 8.4 g/dL (14.0-18.0); MCH 24.3 PG (27-31); MCHC 30.3 g/dL (33-37); MCV 80.3 FL (81-99); MPV 9.9 FL (7.4-10.4); RBC 3.45 XMIL (4.7-6.1)
[2016-02-23 08:31] VITALS: BP 114/50
[2016-02-23] MEDS ORDERED: CULTURELLE PO SCH (09:00)
[2016-02-23] MEDS: MAG-OX PO SCH (09:15)
[2016-02-23] MEDS: KLOR-CON PO SCH (09:15)
[2016-02-23] MEDS: ALDACTONE PO SCH (09:15)
[2016-02-23] MEDS: LASIX PO SCH (09:15)
[2016-02-23] MEDS: BIDIL PO SCH (09:15)
--- NOTE | 2016-02-23 18:35 | DISCHARGE SUMMARY ---
ADMISSION DATE: 02/13/2016 DISCHARGE DATE: 02/23/2016 DISCHARGE DIAGNOSES: 1. Ascites. 2. Nonalcoholic cirrhosis. 3. Shortness of breath. 4. Renal insufficiency. 5. Diabetes mellitus. CONSULTATIONS: 1. Radha Thacker MD. 2. Shaina Henderson MD 3. Jordan Shaver MD. HOSPITAL COURSE: This patient was admitted after outpatient failure of diuretic therapy for a combination of low-grade cardiomyopathy and non alcoholic cirrhosis with ascites. He had gained somewhere north of 30 pounds over the previous weeks on amiloride and Lasix. He had previously been on Aldactone but has been discontinued due to a supposed rash. Patient was brought in the hospital and was started on IV diuretic therapy. He had, initially, quite an increase in his BUN and creatinine even at presentation. This was somewhat inexplicable. We continued to press forward and had Dr. Shaver see him. His kidneys appeared to be functioning normally and we pressed on with diuresis. We eventually added a little bit of metolazone for 3 days with his IV Lasix and spironolactone. All of these medications seemed to hit their appropriate level of activities at about the same time when he had a massive diuresis which helped him tremendously. Dr. Thacker was also consulted and arranged for radiographically guided large volume paracentesis and a liter and a half of fluid was drained which did not appear to be infected, and this was sent off for various studies. All of these confirmed the diagnosis of cirrhosis with ascites. At the time of discharge, the patient's potassium had gone down due to the diuresis and he had been given supplementations of potassium and magnesium. At the time of discharge, his potassium was 3.1, but he was sent home with additional supplementation for a short period. At home the mainstays of his therapy will be Aldactone 50 mg along with Lasix 40 mg per day. FOLLOWUP: The patient was instructed to follow up within 2 weeks to reassess his laboratory values as well as his clinical status in regard to fluid retention.
== END 2016-02-23 12:01 | disposition home or self-care (01) | DRG 433 ==
LOC: 3N 17:38
PROVIDERS: ADMIT Internal Medicine; ATTEND Internal Medicine
PROC: 0W9G3ZX Drainage of Peritoneal Cavity, Percutaneous Approach, Diagnostic (ICD-10-PCS; principal; 2016-02-19)
DX: K74.60 Unspecified cirrhosis of liver (principal); R18.8 Other ascites; N17.9 Acute kidney failure, unspecified; I42.9 Cardiomyopathy, unspecified; I11.0 Hypertensive heart disease with heart failure; K76.6 Portal hypertension; I50.22 Chronic systolic (congestive) heart failure; I27.2 Other secondary pulmonary hypertension; K31.84 Gastroparesis; D64.9 Anemia, unspecified; K21.9 Gastro-esophageal reflux disease without esophagitis; Z87.442 Personal history of urinary calculi; Z79.4 Long term (current) use of insulin; Z79.899 Other long term (current) drug therapy; Z79.84 Long term (current) use of oral hypoglycemic drugs; K75.81 Nonalcoholic steatohepatitis (NASH); I25.10 Atherosclerotic heart disease of native coronary artery without angina pectoris; I87.8 Other specified disorders of veins; E66.9 Obesity, unspecified; Z68.33 Body mass index [BMI] 33.0-33.9, adult; E11.43 Type 2 diabetes mellitus with diabetic autonomic (poly)neuropathy; R19.7 Diarrhea, unspecified
CPT/HCPCS: 49083; 71020; 76700; 80048; 80053; 80069; 81001; 82042; 82140; 82570; 82948; 83735; 83880; 84100; 84156; 84157; 84300; 84443; 85025; 85027; 85610; 85730; 87045; 87046; 87070; 87205; 87324; 89050; 89051; 89055; 94761; 94799; J1815; J1940; J2405

== ENCOUNTER 2018-09-17 09:12 | Inpatient (IN) ==
--- NOTE | 2018-09-17 09:53 | PROVIDER DOCUMENTATION ---
HPI-General Adult - General Chief Complaint: Altered Mental Status Stated Complaint: AMS Time Seen by Provider: 09/17/18 09:44 Source: patient, other (Friend) Allergies/Adverse Reactions: Patient Allergies Allergy/AdvReac Type Severity Reaction Status Date / Time Penicillins Allergy Mild Unknown Verified 07/11/17 19:16 aspirin AdvReac Unknown Verified 07/11/17 19:16 Home Medications: Home Medication List Medication Instructions Recorded Confirmed Last Taken Type Omeprazole 20 mg PO BID 02/19/15 07/11/17 07/11/17 History Cyanocobalamin (Vitamin B-12) 500 mcg PO DAILY 07/09/17 07/11/17 07/11/17 History [B-12] Duloxetine [Cymbalta] 30 mg PO DAILY 07/09/17 07/11/17 07/11/17 History Insulin Glargine [Basaglar] 50 unit SQ BID 07/09/17 07/11/17 07/11/17 07:00 History Melatonin 5 mg PO QHS 07/09/17 07/11/17 07/10/17 History Multivit-Min/FA/Lycopen/Lutein 1 each PO DAILY 07/09/17 07/11/17 07/11/17 History [Centrum Silver Men Tablet] Zinc 50 mg PO DAILY 07/09/17 07/11/17 07/11/17 History Furosemide [Lasix] 40 mg PO DAILY 30 Days #30 tab 07/14/17 07/11/17 07/08/17 Rx Lactulose 30 ml PO DAILY #1000 ml 07/14/17 Unknown Rx Mirtazapine [Remeron] 7.5 mg PO QHS tablet 07/14/17 Unknown Rx Nadolol [Corgard] 20 mg PO HS tablet 07/14/17 Unknown Rx Neomycin 1,000 mg PO DAILY 30 Days #30 tab 07/14/17 Unknown Rx Spironolactone 100 mg PO DAILY #0 07/14/17 07/11/17 07/11/17 Rx - History of Present Illness -Gen Adult Nature of Presenting Problems: Pt. is 72 yom that presents with c/o AMS that began on Thursday and has progressively gotten worse. Pt. has a Hx of cirrhosis and DM. Pt. has been having N/V and states he doesn't feel well. Pt. denies any other complaints. Location of Pain/Injury: reports: none. denies: head, face, mouth, neck, chest, upper extremity, hand(s), abdomen, back, pelvis, genitalia, lower extremity, feet, upper body, lower body, generalized, other Pain Radiation: reports: no radiation. denies: arm(s), back, buttocks, chest, epigastric, feet, groin, jaw, flank (L), legs (lower), LLQ, LUQ, neck, periumbilical, flank (R), RLQ, RUQ, shoulder(s), scapula, scrotal, sternal notch, suprapubic, legs (upper), urethral, vaginal, other Quality of Pain: reports: none. denies: burning, cramping, sharp, tightness Severity: reports: mild. denies: moderate, severe Onset/Duration: reports: gradual, 2 days ago Timing: reports: still present. denies: improving, constant, getting worse Context/Activities at Onset: reports: none. denies: light activity, moderate activity, vigorous activity, recent emotional stress, recent physical stress, recent trauma history, possible bad food, cold exposure, eating, out of country travel, rest, sleep, sexual activity, other Modifying Factors: improves with: nothing Associated Symptoms: reports: malaise, nausea, vomiting, weakness, other (AMS). denies: denies symptoms, anxiety, arm pain, back/neck pain, chest pain, constipation, cough, diaphoresis, diarrhea, dizziness, EENT symptoms, fatigue, fever/chills, genitourinary problems, headaches, heartburn, joint pain, loss of appetite, muscle aches, sinus congestion/drainage, rash, seizure, shortness of breath, sensory/motor loss, pain with inspiration, swelling/mass in abdomen, syncope, trouble walking Similar Symptoms Previously?: Yes Recently seen or treated by another doctor?: No Review of Systems - Adult - REVIEW OF SYSTEMS - ADULT Constitutional: reports: no symptoms reported Eyes: reports: no symptoms reported Ears, Nose, Mouth & Throat: reports: no symptoms reported Cardiovascular: reports: no symptoms reported Respiratory: reports: no symptoms reported Gastrointestinal: reports: see HPI, nausea, vomiting. denies: hematemesis, diarrhea, difficulty swallowing Genitourinary: reports: no symptoms reported Musculoskeletal: reports: no symptoms reported Integumentary: reports: no symptoms reported Neurological: reports: see HPI, other (AMS). denies: dizziness/vertigo, numbness, seizure Psychiatric: reports: no symptoms reported Past History - Adult - PAST MEDICAL HISTORY-ADULT Review of Records: reports: Old Records Reviewed, Nursing Assessment Review, Medications Reviewed, Social history reviewed & non-contributory. Major Childhood Illnesses: reports: denies history Cardiovascular: reports: HTN Respiratory: reports: denies history Gastrointestinal: reports: GI bleed, liver disease Obstetrical/Gynecological: reports: denies history Genitourinary: reports: denies history Musculoskeletal: reports: denies history Neurological: reports: denies history Psychiatric: reports: denies history Endocrine/Immune: reports: Diabetes Other Conditions: reports: denies history - IMMUNIZATION STATUS Childhood Immunizations: See Nurse Assessment Flu Vaccine: NUTD - FAMILY HISTORY Family History: reviewed, not pertinent - SOCIAL HISTORY Smoking: denies Physical Exam-General - PHYSICAL EXAM-ADULT Initial Vital Signs Reviewed: Yes - CONSTITUTIONAL General Appearance: alert, lethargic. negative: anxious, obtunded, combative - EYES Eyes: PERRL/EOMI, scleral icterus (Mild but has a Hx of cirrhosis). negative: pink conjunctivae, conjuctival exudate, sunken eyes - HEAD, EARS, NOSE, MOUTH & THROAT HENMT: normocephalic/atraumatic - NECK Neck: supple - RESPIRATORY Respiratory: lungs clear, normal breath sounds - CARDIOVASCULAR Cardiovascular: normal peripheral pulses, regular rate, rhythm, no edema - GASTROINTESTINAL (ABDOMEN) Abdominal Exam: normal bowel sounds, non tender, soft. negative: guarding, rigid, rebound, tenderness, hernia, mass - LYMPHATIC Lymphatic: no adenopathy - MUSCULOSKELETAL Back Exam: normal inspection, no CVA tenderness, no vertebral tenderness Extremity: normal range of motion, normal inspection. negative: erythema, inflammation, swelling, tenderness Peripheral Pulses: radial (R): 2+, radial (L): 2+ - SKIN Integumentary: pallor. negative: blanching, cyanosis, swelling, tenderness - NEUROLOGIC Neurologic: grossly normal, no motor/sensory deficits - PSYCHIATRIC Psych/Mental Status: normal mood/affect, normal thought content, normal thought process, oriented x 3. negative: anxious, paranoid, tearful Progress - PLAN OF CARE/RESULTS Progress/Plan/Lab Results: Vital Signs - 8 hr 08/02/19 09:15 Temperature 97.8 F Pulse Rate 67 Respiratory Rate 15 Blood Pressure 117/67 O2 Sat by Pulse Oximetry 100 Laboratory Results - last 24 hr 09/17/18 09:20 POC Glucose 500 H D Orders Category Date Time Status Saline Loc NOW Care 09/17/18 09:44 Active CHEST-PORTABLE [RAD] Stat Exams 09/17/18 09:[address] HEAD W/O CONTRAST [CT] Stat Exams 09/17/18 09:45 Ordered ABG [RESP] Routine Lab 09/17/18 09:45 Ordered ACETONE SERUM [CHEM] Stat Lab 09/17/18 09:44 Uncollected AMMONIA [CHEM] Stat Lab 09/17/18 09:45 Uncollected CBC WITH ELECTRONIC DIFF [HEME] Stat Lab 09/17/18 09:44 Uncollected CK PROFILE [SP CHEM] Stat Lab 09/17/18 09:44 Uncollected COMPREHENSIVE METABOLIC PANEL [CHEM] Stat Lab 09/17/18 09:44 Uncollected PRO B-NATRIURETIC PEPTIDE Stat Lab 09/17/18 09:44 Ordered TROPONIN T Stat Lab 09/17/18 09:44 Uncollected URINALYSIS W/POSS RFLX CULT [URINALYSIS] Stat Lab 09/17/18 09:44 Uncollected EKG [EKG] Stat Ther 09/17/18 09:44 Ordered Laboratory Tests 09/17/18 09/17/18 09/17/18 09:20 09:38 09:38 WBC 4.98 RBC 4.77 Hgb 10.3 L Hct 34.0 L MCV 71.3 L MCH 21.6 L MCHC 30.3 L RDW Std Deviation 20.5 H Plt Count 129 L MPV 10.1 Immature Gran % (Auto) 0.0 Neut % (Auto) 76.3 H Lymph % (Auto) 14.7 L Spalding % (Auto) 7.8 Eos % (Auto) 0.8 Baso % (Auto) 0.4 Immature Gran # (Auto) 0.00 Neut # (Auto) 3.80 Lymph # (Auto) 0.73 L Spalding # (Auto) 0.39 Eos # (Auto) 0.04 Baso # (Auto) 0.02 Specimen Type Sample Site pH pCO2 pO2 HCO3 Base Excess Oxyhemoglobin ABG O2 Sat (Calculated) ABG O2 Saturation ABG Carboxyhemoglobin ABG Methemoglobin Italo Test A-a O2 Difference Total Hemoglobin Lactate Blood Gas Modality FiO2 % Sodium 130 L Potassium 4.8 Chloride 93 L Carbon Dioxide 24 L Anion Gap 13 BUN 21 Creatinine 1.1 Estimated GFR/1.73 m2 > 60 BUN/Creatinine Ratio 19 Glucose 459 H* POC Glucose 500 H D Calculated Osmolality 284 Calcium 8.6 L Total Bilirubin 1.49 H AST 30 ALT 29 Alkaline Phosphatase 158 H Ammonia Creatine Kinase 44 Troponin T Total Protein 6.3 Albumin 3.2 L Globulin 3.1 Albumin/Globulin Ratio 1.0 Plasma Lactate Urine Source Urine Color Urine Turbidity Urine pH Ur Specific Statham Urine Protein Ur Glucose (Stick) Ur Ketones (Stick) Urine Blood Urine Nitrite Urine Bilirubin Urobilinogen Dipstick Urine Leukocytes Urine WBC (Auto) Urine RBC (Auto) U Epithel Cells (Auto) Urine Bacteria (Auto) Acetone Level NEGATIVE 09/17/18 09/17/18 09/17/18 09:38 09:38 09:38 WBC RBC Hgb Hct MCV MCH MCHC RDW Std Deviation Plt Count MPV Immature Gran % (Auto) Neut % (Auto) Lymph % (Auto) Spalding % (Auto) Eos % (Auto) Baso % (Auto) Immature Gran # (Auto) Neut # (Auto) Lymph # (Auto) Spalding # (Auto) Eos # (Auto) Baso # (Auto) Specimen Type Sample Site pH pCO2 pO2 HCO3 Base Excess Oxyhemoglobin ABG O2 Sat (Calculated) ABG O2 Saturation ABG Carboxyhemoglobin ABG Methemoglobin Italo Test A-a O2 Difference Total Hemoglobin Lactate Blood Gas Modality FiO2 % Sodium Potassium Chloride Carbon Dioxide Anion Gap BUN Creatinine Estimated GFR/1.73 m2 BUN/Creatinine Ratio Glucose POC Glucose Calculated Osmolality Calcium Total Bilirubin AST ALT Alkaline Phosphatase Ammonia 114 H Creatine Kinase Troponin T < 0.010 Total Protein Albumin Globulin Albumin/Globulin Ratio Plasma Lactate 2.9 H Urine Source Urine Color Urine Turbidity Urine pH Ur Specific Statham Urine Protein Ur Glucose (Stick) Ur Ketones (Stick) Urine Blood Urine Nitrite Urine Bilirubin Urobilinogen Dipstick Urine Leukocytes Urine WBC (Auto) Urine RBC (Auto) U Epithel Cells (Auto) Urine Bacteria (Auto) Acetone Level 09/17/18 09/17/18 09:46 10:05 WBC RBC Hgb Hct MCV MCH MCHC RDW Std Deviation Plt Count MPV Immature Gran % (Auto) Neut % (Auto) Lymph % (Auto) Spalding % (Auto) Eos % (Auto) Baso % (Auto) Immature Gran # (Auto) Neut # (Auto) Lymph # (Auto) Spalding # (Auto) Eos # (Auto) Baso # (Auto) Specimen Type ARTERIAL Sample Site R RADIAL pH 7.49 H pCO2 30 L pO2 100 HCO3 25.0 Base Excess 0.1 Oxyhemoglobin 96.3 ABG O2 Sat (Calculated) 13.8 L ABG O2 Saturation 98.7 ABG Carboxyhemoglobin 1.50 ABG Methemoglobin 0.9 Italo Test YES A-a O2 Difference 12.0 Total Hemoglobin 10.1 L Lactate 2.60 H Blood Gas Modality ROOM AIR FiO2 % 21.0 Sodium Potassium Chloride Carbon Dioxide Anion Gap BUN Creatinine Estimated GFR/1.73 m2 BUN/Creatinine Ratio Glucose POC Glucose Calculated Osmolality Calcium Total Bilirubin AST ALT Alkaline Phosphatase Ammonia Creatine Kinase Troponin T Total Protein Albumin Globulin Albumin/Globulin Ratio Plasma Lactate Urine Source CATH Urine Color YELLOW Urine Turbidity CLEAR Urine pH 6.5 Ur Specific Statham 1.013 Urine Protein NEGATIVE Ur Glucose (Stick) >1000 A Ur Ketones (Stick) NEGATIVE Urine Blood NEGATIVE Urine Nitrite NEGATIVE Urine Bilirubin NEGATIVE Urobilinogen Dipstick NORMAL Urine Leukocytes NEGATIVE Urine WBC (Auto) <10 Urine RBC (Auto) <10 U Epithel Cells (Auto) <10 Urine Bacteria (Auto) NEGATIVE Acetone Level Discussed results and plan of care with patient. Patient agrees with plan and verbalizes understanding. Result Diagrams: 09/17/18 09:38 09/17/18 09:38 - EKG 1 Time of EKG reading by physician:: 09:55 EKG Read and Signed by:: Lynette Snowden EKG Interpretation (*Must complete 3 of following elements*): Abnormal Rate: 64 Rhythm: Sinus Rhythm with PAC's CO Interval: prolonged - XRAY 1 XRAY Study: Chest ([facility] - [address], [address] [address], [place] [address] [facility] - [address] [place] [address] Department of Imaging Patient: DAVE FLORIAN Date: 09/17/18MR#: [id number] : 5ADM Status: REG ERAcct#: [id number] Age/Sex: 72/MRoom/Bed: Loc: ED Ordering Physician: Ishaan Puckett Family Physician: Flavio Stearns MD Reason for Procedure: ams Signed EXAM: CHEST-PORTABLE 09/17/2018 HISTORY: ams TECHNIQUE: AP portable at 1000 COMMENT: There is no evidence of acute cardiac or pulmonary disease. Compared to 07/11/2017 there has been no significant change. IMPRESSION: No evidence of acute disease. Electronically signed by Theron Bowling 09/17/2018 10:03 AM 09/17/18 1003 Interpreting Physician: Theron Bowling MD Dictated Date/Time: 09/17/18 1003 cc: Ishaan Puckett; Flavio Stearns MD) XRAY Interpretation: See note - CT/MRI 1 CT Study: Head ([facility] - [address] [place] [address] [address] [id number] [facility] - [address] [place] [address] Department of Imaging Patient: DAVE FLORIAN Date: #: [id number] : 5ADM Status: [facility]#: [id number] Age/Sex: 72/MRoom/Bed: Loc: ED Ordering Physician: Ishaan Puckett Family Physician: Flavio Stearns MD Reason for Procedure: ams ___ Signed EXAM: CT HEAD W/O CONTRAST 09/17/2018 HISTORY: ams TECHNIQUE: This exam was performed using automated exposure control, adjustment of mA or kV according to patient size, and/or use of iterative reconstruction technique. COMMENT: There is a mild degree of cerebral atrophy. There is no evidence of mass effect, bleed, or abnormal extra-axial fluid collection. The calvarium is intact. The visualized paranasal sinuses are clear. Compared to the previous examination of 07/11/2017 there has been no significant change in the appearance of the brain. IMPRESSION: No evidence of acute intracranial disease. Electronically signed by Theron Bowling 09/17/2018 10:05 AM 09/17/18 1005 Interpreting Physician: Theron Bowling MD Dictated Date/Time: 09/17/18 1003 cc: Ishaan Puckett; Flavio Stearns MD) CT Results: See note - CONSULTS/PCP/HOSPITALIST Notification #1 *Consult/PCP/Hospitalist*: Dr. Stearns Time Discussed: 10:31 Reason/Comments: Admission Consult Disposition: Will see in ED, Admit Departure - Departure Date of Disposition Decision: 09/17/18 Time of Disposition Decision: 10:24 DIAGNOSIS: Hyperglycemia due to type 1 diabetes mellitus, Hepatic encephalopathy, Hy perbilirubinemia Altered mental status Qualifiers: Altered mental status type: unspecified Qualified Code(s): R41.82 - Altered mental status, unspecified Disposition: ADMITTED INPATIENT 09 Certified Medical Emergency: Emergent Condition: Stable Referrals and Follow-Ups: Flavio Stearns MD [Primary Care Provider] - - Critical Care Note This patient required my direct & personal management of CC.: Yes Total Time (mins): 35 Critical Care Statement: This patient required my direct personal management to treat or rule out processes, the absence of which, could potentiallly result in sudden, clinically significant life or limb threatening deterioration. Attestation - Physician/ KELL Attestation Patient care was provided by Advanced Practice Provider:: Yes Advanced Practice Provider:: Ishaan Puckett Advanced Practice Provider documentation review:: The Mid-level provider documentation, treatment plan and medical decision making was reviewed by the physician who agrees with all treatment and medical decision making by the P. The physician spent face to face time with patient:: No Advanced Practice Provider documentation review:: Supervising physician onsite and consulted in the evaluation and care of this patient. The physician did not have a face to face encounter with the patient.
[2018-09-17 09:57] LABS: URINE SOURCE CATH
[2018-09-17 10:01] LABS: BILIRUBIN URINE NEGATIVE (NEGATIVE); BLOOD URINE NEGATIVE (NEGATIVE); COLOR YELLOW; GLUCOSE URINE >1000 mg/dL (NEGATIVE); KETONE URINE NEGATIVE (NEGATIVE); LEUKOCYTES URINE NEGATIVE (NEGATIVE); NITRITE URINE NEGATIVE (NEGATIVE); PH URINE 6.5; PROTEIN URINE NEGATIVE (NEGATIVE); SP GRAVITY URINE 1.013; TURBIDITY URINE CLEAR (CLEAR); UROBILINOGEN URINE NORMAL (NORMAL)
[2018-09-17 10:02] LABS: UR EPITHELIAL CELLS <10 /HPF (<10); URINE BACTERIA NEGATIVE /HPF; URINE RBC <10 /HPF (<10); URINE WBC <10 /HPF (<10)
[2018-09-17 10:02] LABS: BASO# 0.02 X1000 (0.0-0.2); BASO% 0.4 % (0.0-0.8); EOS# 0.04 X1000 (0.0-0.7); EOS% 0.8 % (0.0-10.0); HEMOGLOBIN 10.3 g/dL (14.0-18.0); LYMPH# 0.73 X1000 (1.2-3.4); LYMPH% 14.7 % (20.5-51.1); MCH 21.6 PG (27-31); MCHC 30.3 g/dL (33-37); MCV 71.3 FL (81-99); MONO# 0.39 X1000 (0.11-0.59); MONO% 7.8 % (1.7-9.3); MPV 10.1 FL (7.4-10.4); NEUT% 76.3 % (42.2-75.2); PLT 129 X1000 (130-400); RBC 4.77 XMIL (4.7-6.1); RDW 20.5 % (11.5-14.5); WBC 4.98 X1000 (4.8-10.8)
--- NOTE | 2018-09-17 10:02 | EKG Report ---
Test Performed on : 09/17/2018 09:51:11 AM Test Reason : ams Blood Pressure : / mmHG Vent. Rate : 064 BPM Atrial Rate : 064 BPM P-R Int : 172 ms QRS Dur : 098 ms QT Int : 486 ms P-R-T Axes : 091 -21 074 degrees QTc Int : 501 ms Sinus rhythm. with premature atrial complexes. Voltage criteria for left ventricular hypertrophy Cannot rule out Anteroseptal infarct (cited on or before 26-SEP-2009) Prolonged QT Abnormal ECG When compared with ECG of 11-JUL-2017 16:31, Questionable change in initial forces of Anteroseptal leads Unconfirmed Result
--- NOTE | 2018-09-17 10:06 | Diag Imaging Result Doc PS360 ---
EXAM: CHEST-PORTABLE 09/17/2018 HISTORY: ams TECHNIQUE: AP portable at 1000 COMMENT: There is no evidence of acute cardiac or pulmonary disease. Compared to 07/11/2017 there has been no significant change. IMPRESSION: No evidence of acute disease. Electronically signed by Theron Bowling 09/17/2018 10:03 AM
--- NOTE | 2018-09-17 10:07 | Diag Imaging Result Doc PS360 ---
EXAM: CT HEAD W/O CONTRAST 09/17/2018 HISTORY: ams TECHNIQUE: This exam was performed using automated exposure control, adjustment of mA or kV according to patient size, and/or use of iterative reconstruction technique. COMMENT: There is a mild degree of cerebral atrophy. There is no evidence of mass effect, bleed, or abnormal extra-axial fluid collection. The calvarium is intact. The visualized paranasal sinuses are clear. Compared to the previous examination of 07/11/2017 there has been no significant change in the appearance of the brain. IMPRESSION: No evidence of acute intracranial disease. Electronically signed by Theron Bowling 09/17/2018 10:05 AM
[2018-09-17 10:16] LABS: ALLEN TEST YES; BE 0.1 mmoll (-3.0-3.0); BLOOD TYPE ARTERIAL; METHB 0.9 % (0.0-1.5); O2(CT) 13.8 mL/dL (15.0-23.0); O2HB 96.3 % (95.0-99.0); PCO2(98.6) 30 mmHg (35-45); PO2(98.6) 100 mmHg (60-100); SAMPLE BLOOD; SAO2 98.7 % (95.0-100.0); THB 10.1 g/dL (11.5-17.4); pH(98.6) 7.49 (7.35-7.45)
[2018-09-17 10:17] LABS: MODALITY ROOM AIR
[2018-09-17 10:21] LABS: ACETONE SERUM NEGATIVE (NEGATIVE); AGAP 13; ALBUMIN 3.2 g/dL (3.5-5.0); ALKALINE PHOSPHATASE 158 U/L (32-122); BUN 21 mg/dL (8-22); CALCIUM 8.6 mg/dL (8.8-10.2); CHLORIDE 93 mmol/L (98-107); CK PROFILE 44 U/L (24-204); COSMO 284; CREATININE 1.1 mg/dL (0.7-1.2); ESTIMATED GFR > 60; GOT 30 U/L (10-34); GPT 29 U/L (10-44); POTASSIUM 4.8 mmol/L (3.5-5.1); SODIUM 130 mmol/L (136-145); TCO2 24 mmol/L (25-35); TOTAL BILIRUBIN 1.49 mg/dL (0.20-1.00); TOTAL PROTEIN 6.3 g/dL (6.3-8.3)
[2018-09-17] MEDS ORDERED: NS 1,000 ML IV ONE (10:22)
[2018-09-17 10:23] LABS: GLUCOSE 459 mg/dL (70-104)
[2018-09-17] MEDS ORDERED: HUMULIN R IV ONE (10:23)
[2018-09-17] MEDS ORDERED: ZOFRAN IV PRN (10:57)
[2018-09-17] MEDS ORDERED: HUMALOG SUBQ ONE (10:57)
[2018-09-17] MEDS: LACTULOSE PO ONE ×2 (12:30→14:26)
--- NOTE | 2018-09-17 18:36 | HISTORY AND PHYSICAL ---
CHIEF COMPLAINT: Confusion. HISTORY OF PRESENT ILLNESS: This 72-year-old white male with multiple medical conditions presents with his friend, complaining of 3 days of confusion and disorientation. The friend describes him trying to put his foot into a pillow, thinking that it was a shoe. He also stated that the patient thought that he was going to work at his job, even though he has been retired for a number of years. When the friend discussed calling the doctor's office for help, the patient became livid. This morning the patient was even more confused, and agreed to transfer reluctantly to the emergency room. There he was found to have a high ammonia level and high glucose level, and is admitted for treatment. PAST MEDICAL HISTORY: 1. Cirrhosis secondary to nonalcoholic steatohepatitis. He has ascites and has a history of hepatic encephalopathy in the past. 2. Esophageal varices. 3. Primary liver cancer. 4. Gastroesophageal reflux disease. 5. Chronic anemia. 6. Kidney stones history. 7. Diabetes mellitus type 2, on insulin. 8. History of congestive heart failure. PAST SURGICAL HISTORY: Cholecystectomy and tonsillectomy. PRESENT MEDICATIONS: Ambien 10 mg p.o. at bedtime; Basaglar insulin 50 units q.a.m., 50 q.p.m.; Klor-Con 20 mEq 2 p.o. b.i.d.; Mag-Ox 400 mg p.o. daily; duloxetine 30 mg p.o. daily; furosemide 40 mg p.o. daily; isosorbide dinitrate 20 mg p.o. b.i.d.; lactulose 10 g (15 mL) oral solution daily; mirtazapine 15 mg p.o. at bedtime; nadolol 20 mg p.o. at bedtime; omeprazole 20 mg p.o. b.i.d.; spironolactone 50 mg 2 p.o. daily. SOCIAL HISTORY: The patient is a lifelong nonsmoker and nonuser of recreational drugs. He does not use alcohol. He is retired. FAMILY HISTORY: Noncontributory. REVIEW OF SYSTEMS: The patient and his friend deny any fever. He does describe relative imbalance, overall weakness and difficulty maintaining himself without use of a walker when he tries to stand up. Both admit that the patient's blood sugars have been "high." There has been no shortness of breath or fluid buildup. There has been no increase in edema. There has been no increase in abdominal girth. The patient has had a bowel movement every day. He has normal urination. His eating and drinking has been stable. Weight has been stable. PHYSICAL EXAMINATION: GENERAL: He is a well-developed, well-nourished white male in no acute distress. He is alert. He seems oriented. He is calm. He seems to answer questions appropriately at the time of my examination. HEENT: Sclerae are anicteric. Oral mucosa is dry but not parched. He has lot of cracks and fissures in his tongue, but it is not absolutely parched. Generally normal coloration. NECK: Exam unremarkable. CARDIOVASCULAR: Regular. ABDOMEN: No swelling or ascites. EXTREMITIES: No peripheral edema. SKIN: The patient has multiple small traumatic ecchymoses on the arms and legs. NEUROPSYCHIATRIC: The patient does have a bit of a flapping tremor when his hands are dorsiflexed at the wrist. LABORATORY DATA: White cell count 4.9, hemoglobin 10.3, platelet count is 129,000. Sodium is 130, potassium 4.8, BUN 21, creatinine 1.1, blood glucose is 459, total bilirubin is 1.49. AST and ALT are normal. Alkaline phosphatase is 158. Ammonia is 114. CK and troponin negative. ProBNP 447. Plasma lactate was 2.9. Urinalysis shows elevated glucose levels. ABG 7.49 / 30 / 100 and 98.7% saturated on room air. DIAGNOSTIC DATA: Head CT and chest x-ray were read as normal. ASSESSMENT AND PLAN: 1. The patient's mental confusion is likely multifactorial, mostly influenced by elevated ammonia levels and elevated blood glucose. We are going to admit the patient to the hospital. He is going to be getting 1 L of fluid as a hydration aid. We will monitor fluid status. We will put him back on his home medication regimen, with the exception of adding extra doses of lactulose to hopefully reduce his ammonia level. 1. The patient will be on sliding scale insulin. We will try and get better control of his blood sugar and make sure that he is eating. 2. We will test the patient's ability to ambulate and/or get up, as he recovers his mental status more appropriately. cc: Flavio Stearns MD
[2018-09-17] MEDS: REMERON PO SCH (21:37)
[2018-09-17] MEDS: PRILOSEC PO SCH (21:37)
[2018-09-17] MEDS: MELATONIN PO SCH (21:37)
[2018-09-17] MEDS: LACTULOSE PO SCH (21:38)
[2018-09-17] MEDS: LANTUS INSULIN SUBQ SCH (21:38)
[2018-09-18 06:32] LABS: AGAP 15; ALB/GLOB RATIO 0.9; ALKALINE PHOSPHATASE 163 U/L (32-122); BUN 18 mg/dL (8-22); CALCIUM 8.3 mg/dL (8.8-10.2); CHLORIDE 97 mmol/L (98-107); COSMO 272; CREATININE 0.9 mg/dL (0.7-1.2); ESTIMATED GFR > 60; GLUCOSE 161 mg/dL (70-104); GOT 36 U/L (10-34); GPT 29 U/L (10-44); POTASSIUM 4.3 mmol/L (3.5-5.1); SODIUM 133 mmol/L (136-145); TCO2 21 mmol/L (25-35); TOTAL BILIRUBIN 1.96 mg/dL (0.20-1.00); TOTAL PROTEIN 6.4 g/dL (6.3-8.3)
[2018-09-18 06:45] LABS: BASO# 0.04 X1000 (0.0-0.2); BASO% 0.6 % (0.0-0.8); EOS# 0.15 X1000 (0.0-0.7); EOS% 2.3 % (0.0-10.0); HEMATOCRIT 36.6 % (42.0-52.0); LYMPH# 1.42 X1000 (1.2-3.4); LYMPH% 21.5 % (20.5-51.1); MCH 22.1 PG (27-31); MCHC 30.1 g/dL (33-37); MCV 73.6 FL (81-99); MONO# 0.61 X1000 (0.11-0.59); MONO% 9.2 % (1.7-9.3); MPV 10.7 FL (7.4-10.4); NEUT# 4.38 X1000 (1.4-6.5); NEUT% 66.4 % (42.2-75.2); PLT 122 X1000 (130-400); RBC 4.97 XMIL (4.7-6.1); RDW 21.4 % (11.5-14.5)
[2018-09-18] MEDS: CYMBALTA PO SCH (09:51)
[2018-09-18] MEDS: NEOMYCIN PO SCH (09:51)
[2018-09-18] MEDS: VITAMIN B-12 PO SCH (09:52)
[2018-09-18] MEDS: LACTULOSE PO SCH ×2 (09:52→21:34)
[2018-09-18] MEDS: PRILOSEC PO SCH ×2 (09:52→21:34)
[2018-09-18] MEDS: LANTUS INSULIN SUBQ SCH ×2 (09:54→21:35)
[2018-09-18] MEDS ORDERED: M.V.I.-12 10 ML, FOLIC ACID 1 MG, MAGNESIUM SULFATE 1 GM, THIAMINE 100 MG in NS 1,000 ML IV ONE (11:39)
--- NOTE | 2018-09-18 13:23 | PROGRESS NOTE ---
DATE: 09/18/2018 SUBJECTIVE: The patient is sitting up in the chair. He seems more alert and lucid than he was yesterday. He states that he does recall being confused in the days prior to admission. OBJECTIVE: Vital Signs: 98.4, 87, 18, 124/64, 100% saturated on room air. Lungs: Clear to auscultation. Cardiovascular: Regular. Extremities: Show no peripheral edema. Neuropsych: The patient appears alert, oriented, conversive and appropriate. He does have a slight bit of jerking with his hands dorsiflexed. LABORATORY DATA: White count 6.6, hematocrit 37. BUN 18, creatinine 0.9, total bilirubin 1.96, alkaline phosphatase 163. Ammonia level 125. ASSESSMENT AND PLAN: 1. Again, the patient encephalopathy is likely multifactorial due to chronic liver disease, as evidenced by elevated ammonia, and blood sugar out of control. This morning, blood sugar was 350. The nurse informed me that my orders for sliding scale insulin, which I wrote down in the emergency room yesterday, were canceled on the floor for inexplicable reasons and he has received no p.r.n. Humalog. I have added those orders back in. 2. We will give the patient a banana bag as he had some moderate cheilosis on admission. 3. The patient will remain on his home medications for his liver disease. I have increased his lactulose to twice daily. 4. The patient was able to get up out of bed today and get himself into the chair. He seems comfortable and in a better place mentally despite the fact that his ammonia level is actually slightly higher than admission. cc: Flavio Stearns MD [facility]
[2018-09-18] MEDS: HUMALOG SUBQ SCH ×3 (16:53→21:35)
[2018-09-18] MEDS: MELATONIN PO SCH (21:34)
[2018-09-18] MEDS: REMERON PO SCH (21:34)
[2018-09-19] MEDS: HUMALOG SUBQ SCH ×4 (06:01→21:30)
[2018-09-19 07:39] LABS: RBC 4.81 XMIL (4.7-6.1); WBC 5.35 X1000 (4.8-10.8)
[2018-09-19 07:40] LABS: BASO# 0.03 X1000 (0.0-0.2); BASO% 0.6 % (0.0-0.8); EOS# 0.03 X1000 (0.0-0.7); EOS% 0.6 % (0.0-10.0); HEMATOCRIT 34.9 % (42.0-52.0); HEMOGLOBIN 10.5 g/dL (14.0-18.0); LYMPH# 1.01 X1000 (1.2-3.4); LYMPH% 18.9 % (20.5-51.1); MCH 21.8 PG (27-31); MCHC 30.1 g/dL (33-37); MCV 72.6 FL (81-99); MONO# 0.54 X1000 (0.11-0.59); MONO% 10.1 % (1.7-9.3); MPV 10.4 FL (7.4-10.4); NEUT# 3.74 X1000 (1.4-6.5); NEUT% 69.8 % (42.2-75.2); PLT 104 X1000 (130-400)
[2018-09-19 07:54] LABS: AGAP 10; ALKALINE PHOSPHATASE 149 U/L (32-122); BUN 18 mg/dL (8-22); CALCIUM 7.6 mg/dL (8.8-10.2); CHLORIDE 98 mmol/L (98-107); COSMO 268; CREATININE 0.9 mg/dL (0.7-1.2); ESTIMATED GFR > 60; GLUCOSE 154 mg/dL (70-104); GOT 32 U/L (10-34); GPT 27 U/L (10-44); POTASSIUM 4.5 mmol/L (3.5-5.1); SODIUM 131 mmol/L (136-145); TCO2 23 mmol/L (25-35); TOTAL BILIRUBIN 1.95 mg/dL (0.20-1.00)
[2018-09-19] MEDS: LACTULOSE PO SCH (08:53)
[2018-09-19] MEDS: CYMBALTA PO SCH (08:54)
[2018-09-19] MEDS: PRILOSEC PO SCH ×2 (08:54→22:06)
[2018-09-19] MEDS: LANTUS INSULIN SUBQ SCH (08:54)
[2018-09-19] MEDS: VITAMIN B-12 PO SCH (08:54)
[2018-09-19] MEDS: NEOMYCIN PO SCH (08:54)
[2018-09-19] MEDS: MELATONIN PO SCH (22:05)
[2018-09-19] MEDS: REMERON PO SCH (22:06)
[2018-09-20] MEDS: LACTULOSE PO SCH ×3 (00:49→21:45)
[2018-09-20] MEDS: LANTUS INSULIN SUBQ SCH ×3 (02:32→21:45)
[2018-09-20] MEDS: HUMALOG SUBQ SCH ×4 (06:55→21:45)
[2018-09-20] MEDS ORDERED: FLOMAX PO ONE (07:54)
[2018-09-20] MEDS: NEOMYCIN PO SCH (08:46)
[2018-09-20] MEDS: CYMBALTA PO SCH (08:46)
[2018-09-20] MEDS: PRILOSEC PO SCH ×2 (08:46→21:45)
[2018-09-20] MEDS: VITAMIN B-12 PO SCH (08:48)
[2018-09-20] MEDS: MELATONIN PO SCH (21:45)
[2018-09-20] MEDS: REMERON PO SCH (21:45)
[2018-09-20] MEDS: FLOMAX PO SCH (21:45)
--- NOTE | 2018-09-20 22:34 | PROGRESS NOTE ---
DATE: 09/19/2018 As a narrative summary, I spoke to the patient in the morning about possible discharge. We are waiting for his friends to arrive and assess overall mental status. When I came back in the afternoon, the patient did not mention that his friend had been in at all and we had planned to be discharged the following day. At that time, the patient voiced no complaints and no difficulty. Lab work was stable. Vital signs were good and his blood sugar was under reasonable control. The overall plan for 09/19 was to be available for discharge the following day. cc: Flavio Stearns MD
--- NOTE | 2018-09-20 22:37 | PROGRESS NOTE ---
DATE: 09/20/2018 SUBJECTIVE: This morning when I came in I had been notified by the nursing staff that the patient was having urinary retention. His bladder scan postvoid residual was approximately 500 mL. We decided to put in a Hare catheter. He had made no complaints of urinary difficulty, and none of his medications should have caused that. It makes me wonder whether this was part of his overall confusion before. There was no evidence of urinary tract infection at admission either. I spoke with the patient's friend who was at bedside, and he said that yesterday afternoon, the patient's mental status was as bad or worse than when he came in, despite the fact that his blood sugar had been corrected and all his home medications were being applied appropriately. At that time, we did not know that he was having any urinary retention difficulty. OBJECTIVE: Vital Signs: 98.0, 84, 14, 131/62, 100% saturated on room air. General: The patient is lying in bed with eyes closed. He is responsive but not as lively or as interactive as yesterday. They have not performed a straight catheterization or a Hare catheter insertion at the time of my examination. Lungs: Clear. Cardiovascular: Regular. LABORATORIES: There were no laboratories ordered today. ASSESSMENT AND PLAN: 1. The patient's urinary retention is a new finding. I plan to put him on some Flomax and keep the Hrae catheter in. If he stabilizes with this, I may send him home for a few days and then try him on outpatient trial with a urologist. 2. The patient's blood sugar is under much better control with sliding scale insulin and his Basaglar. He does not require all that much in the way of sliding scale insulin. We may increase his Basaglar at home at the time of discharge. 3. The patient's home medications for his liver disease are on board and working appropriately. He is having at least 1 bowel movement today per day. 4. The patient's mental status has declined since yesterday, and we will see if the insertion of the Hare catheter improves this. Otherwise, we will check another ammonia level tomorrow and see where we stand. cc: Flavio Stearns MD
[2018-09-21] MEDS: HUMALOG SUBQ SCH ×4 (06:09→21:00)
[2018-09-21 07:28] LABS: BASO# 0.02 X1000 (0.0-0.2); BASO% 0.4 % (0.0-0.8); EOS# 0.02 X1000 (0.0-0.7); EOS% 0.4 % (0.0-10.0); HEMATOCRIT 32.7 % (42.0-52.0); HEMOGLOBIN 9.9 g/dL (14.0-18.0); LYMPH# 0.63 X1000 (1.2-3.4); LYMPH% 12.7 % (20.5-51.1); MCH 22.1 PG (27-31); MCHC 30.3 g/dL (33-37); MONO# 0.44 X1000 (0.11-0.59); MONO% 8.8 % (1.7-9.3); MPV 9.7 FL (7.4-10.4); NEUT# 3.87 X1000 (1.4-6.5); NEUT% 77.7 % (42.2-75.2); PLT 85 X1000 (130-400); RBC 4.48 XMIL (4.7-6.1); WBC 4.98 X1000 (4.8-10.8)
[2018-09-21 07:48] LABS: AGAP 14; BUN 17 mg/dL (8-22); CHLORIDE 99 mmol/L (98-107); COSMO 272; CREATININE 0.8 mg/dL (0.7-1.2); ESTIMATED GFR > 60; GLUCOSE 134 mg/dL (70-104); POTASSIUM 4.3 mmol/L (3.5-5.1); SODIUM 134 mmol/L (136-145); TCO2 21 mmol/L (25-35)
[2018-09-21 07:49] LABS: ALB/GLOB RATIO 0.9; ALBUMIN 2.9 g/dL (3.5-5.0); ALKALINE PHOSPHATASE 167 U/L (32-122); GOT 39 U/L (10-34); GPT 30 U/L (10-44); TOTAL BILIRUBIN 2.41 mg/dL (0.20-1.00)
[2018-09-21] MEDS: CYMBALTA PO SCH (09:17)
[2018-09-21] MEDS: LACTULOSE PO SCH ×2 (09:17→20:57)
[2018-09-21] MEDS: LANTUS INSULIN SUBQ SCH ×2 (09:18→20:59)
[2018-09-21] MEDS: PRILOSEC PO SCH ×2 (09:18→20:57)
[2018-09-21] MEDS: NEOMYCIN PO SCH (09:18)
[2018-09-21] MEDS: VITAMIN B-12 PO SCH (09:18)
--- NOTE | 2018-09-21 16:02 | PROGRESS NOTE ---
DATE: 09/21/2018 SUBJECTIVE: Honestly the patient did not seem very oriented today. He kept repeating himself. Although he tried diligently to answer questions, sometimes his responses were delayed or did not make sense. He was able to sit up and eat breakfast shortly after I saw him though. He seemed a little better at that point. OBJECTIVE: Vital signs: Patient is afebrile. His vital signs are stable. General: The patient is alert. He is partially oriented. He is conversive but slow and sometimes inappropriate answering. Lungs: Clear. Cardiovascular: Regular. : The Hare catheter is draining darkish urine. It is otherwise clear. LABORATORY: The patient's ammonia level is down to 65. No real change in the other parameters with the exception of a slight increase in bilirubin. ASSESSMENT: 1. The patient's urinary retention is rather inexplicable. I have him on Flomax and will try and get Urology to take a look at him tomorrow. 2. Hepatic encephalopathy or more appropriately stated multifactorial encephalopathy. Seems to be persistent despite lowering his ammonia levels. His blood sugar is under much better control as well. I am not sure what is driving his confusion. I do not plan to make many medication changes. We will try and get him up and walking around some. cc: Flavio Stearns MD
[2018-09-21] MEDS: CALMOSEPTINE OINTMENT TOP SCH (20:56)
[2018-09-21] MEDS: MELATONIN PO SCH (20:58)
[2018-09-21] MEDS: FLOMAX PO SCH (20:58)
[2018-09-21] MEDS: REMERON PO SCH (20:58)
[2018-09-22] MEDS: HUMALOG SUBQ SCH ×4 (06:11→20:51)
[2018-09-22] MEDS: LACTULOSE PO SCH ×2 (09:40→20:50)
[2018-09-22] MEDS: CYMBALTA PO SCH (09:40)
[2018-09-22] MEDS: LANTUS INSULIN SUBQ SCH ×2 (09:40→20:52)
[2018-09-22] MEDS: NEOMYCIN PO SCH (09:40)
[2018-09-22] MEDS: VITAMIN B-12 PO SCH (09:40)
[2018-09-22] MEDS: PRILOSEC PO SCH ×2 (09:40→20:49)
[2018-09-22] MEDS: CALMOSEPTINE OINTMENT TOP SCH ×4 (11:58→20:53)
--- NOTE | 2018-09-22 13:16 | PROGRESS NOTE ---
DATE: 09/22/2018 SUBJECTIVE: The patient has no complaints. He states he is feeling better. His friend who was present this morning also states that he is more lucid and much more like himself. The patient attributes this to the fact that he "slept all night and had a sound sleep". We discussed the plan going forward and everyone was in agreement. OBJECTIVE: Vital Signs: 98.1, 97, 26, 128/67, and 100% saturated on room air. Lungs: The patient's lungs are clear. Cardiovascular: Regular at 97. Neuropsych: The patient is alert and oriented. He is conversive and appropriate. He is much more lucid today and seems more like himself. LABORATORY: There are no laboratories ordered today. ASSESSMENT AND PLAN: 1. In regard to the patient's urinary retention, he was put on Flomax a couple days of ago. We will remove the Hare catheter and check postvoid residual today. If he has significant residuals, we will have to consult Urology in house. Other than that, we will continue the Flomax. 2. The patient's blood sugar is generally under better control. We will continue the accelerated dose of 54 units of basaglar twice daily. 3. Last ammonia count was half of that at admission. His presumed hepatic encephalopathy seems to be better today. 4. Mental status continues to fluctuate. We may have to look into other reasons for this. 5. The remainder of the patient's medications will remain as they were previously. We will recheck lab work in the morning. cc: Flavio Stearns MD [facility]
[2018-09-22] MEDS: REMERON PO SCH (20:48)
[2018-09-22] MEDS: MELATONIN PO SCH (20:48)
[2018-09-22] MEDS: FLOMAX PO SCH (20:48)
[2018-09-22 22:44] LABS: URINE SOURCE CATH
[2018-09-22 22:49] LABS: BILIRUBIN URINE NEGATIVE (NEGATIVE); BLOOD URINE MODERATE (NEGATIVE); COLOR YELLOW; GLUCOSE URINE 500 mg/dL (NEGATIVE); KETONE URINE NEGATIVE (NEGATIVE); LEUKOCYTES URINE MODERATE (NEGATIVE); NITRITE URINE NEGATIVE (NEGATIVE); PH URINE 5.5; PROTEIN URINE NEGATIVE (NEGATIVE); SP GRAVITY URINE 1.014; TURBIDITY URINE CLEAR (CLEAR); UROBILINOGEN URINE 4 mg/dL (NORMAL)
[2018-09-22 22:51] LABS: UR EPITHELIAL CELLS <10 /HPF (<10); URINE BACTERIA 2+ /HPF; URINE RBC TNTC /HPF (<10); URINE WBC <10 /HPF (<10)
[2018-09-23] MEDS: HUMALOG SUBQ SCH ×4 (06:03→20:57)
[2018-09-23 08:08] LABS: BASO# 0.01 X1000 (0.0-0.2); BASO% 0.2 % (0.0-0.8); EOS# 0.01 X1000 (0.0-0.7); EOS% 0.2 % (0.0-10.0); HEMATOCRIT 29.3 % (42.0-52.0); LYMPH# 0.58 X1000 (1.2-3.4); LYMPH% 10.6 % (20.5-51.1); MCH 22.1 PG (27-31); MCHC 30.7 g/dL (33-37); MONO# 0.63 X1000 (0.11-0.59); MONO% 11.6 % (1.7-9.3); MPV 10.4 FL (7.4-10.4); NEUT# 4.22 X1000 (1.4-6.5); NEUT% 77.4 % (42.2-75.2); PLT 82 X1000 (130-400); RBC 4.07 XMIL (4.7-6.1); RDW 20.5 % (11.5-14.5); WBC 5.45 X1000 (4.8-10.8)
[2018-09-23 08:16] LABS: AGAP 12; ALB/GLOB RATIO 0.9; ALBUMIN 2.6 g/dL (3.5-5.0); ALKALINE PHOSPHATASE 181 U/L (32-122); BUN 14 mg/dL (8-22); CALCIUM 7.5 mg/dL (8.8-10.2); CHLORIDE 95 mmol/L (98-107); COSMO 259; CREATININE 0.6 mg/dL (0.7-1.2); ESTIMATED GFR > 60; GLUCOSE 164 mg/dL (70-104); GOT 36 U/L (10-34); GPT 29 U/L (10-44); POTASSIUM 3.5 mmol/L (3.5-5.1); SODIUM 127 mmol/L (136-145); TCO2 20 mmol/L (25-35); TOTAL BILIRUBIN 2.58 mg/dL (0.20-1.00); TOTAL PROTEIN 5.6 g/dL (6.3-8.3)
--- NOTE | 2018-09-23 08:37 | PROGRESS NOTE ---
DATE: 09/23/2018 SUBJECTIVE: The patient states, "I want to go home." Last night, I received a call around 10:30 about the patient's postvoid residual being greater than 300. I was shocked to find out that no other postvoid residual had been checked in the 13 hours prior to that when I wrote the order. Nevertheless, we will place a Hare catheter, and we have consulted Urology this morning. OBJECTIVE: Vital Signs: Temperature 98.1, pulse 90, respirations 19, blood pressure 111/57, saturating 100% on room air. General: The patient is in no acute distress. Lungs: Clear. Cardiovascular: Regular at 90 beats per minute. Extremities: No peripheral edema. Abdomen: Slightly protuberant, most likely due to some mild ascites. LABORATORY DATA: White cell count 5.4, hemoglobin 9.0. Ammonia 79. Liver function tests are not back yet. Cath UA from last night showed moderate blood, but was otherwise okay. ASSESSMENT AND PLAN: 1. Urology has been consulted this morning. I cannot put together that any of his medications have caused his urinary retention, so we are left with the possibility of benign prostatic hyperplasia or a neurogenic bladder as a result of his diabetes. Hopefully, we can get this sorted out with Urology, and get the patient discharged home with a leg bag and quick followup. 2. The patient's ammonia level remains down from presentation. 3. Blood sugar is reasonably well controlled on his 54 units of Basaglar twice daily. He is still getting sliding scale, but it is not a whole bunch of insulin that he is getting in addition to his baseline amount. 4. The remainder of the patient's medications and other vital parameters are stable. cc: Flavio Stearns MD
[2018-09-23] MEDS: VITAMIN B-12 PO SCH (09:21)
[2018-09-23] MEDS: LACTULOSE PO SCH ×2 (09:21→20:58)
[2018-09-23] MEDS: CYMBALTA PO SCH (09:21)
[2018-09-23] MEDS: LANTUS INSULIN SUBQ SCH ×2 (09:22→20:57)
[2018-09-23] MEDS: CALMOSEPTINE OINTMENT TOP SCH ×4 (09:22→21:00)
[2018-09-23] MEDS: NEOMYCIN PO SCH (09:22)
[2018-09-23] MEDS: PRILOSEC PO SCH ×2 (09:23→20:58)
[2018-09-23] MEDS ORDERED: NS 1,000 ML IV ONE (18:50)
[2018-09-23] MEDS: MELATONIN PO SCH (20:58)
[2018-09-23] MEDS: FLOMAX PO SCH (20:59)
--- NOTE | 2018-09-23 22:31 | CONSULTATION ---
DATE OF CONSULTATION: 09/23/2018 CHIEF COMPLAINT: Urinary retention. HISTORY OF PRESENT ILLNESS: Mr. Ortiz is a 72-year-old with non-alcoholic steatohepatitis with ascites and history of hepatic encephalopathy, liver cancer, gastroesophageal reflux disease, type 2 diabetes, congestive heart failure, remote history of kidney stones, who presents in consultation regarding urinary retention. The patient was admitted with confusion and alter mental status on 09/17/[address] Stearns's service. He was having 3 to 4 days of confusion and disorientation. He was brought in by friend due to significant confusion. The patient has been worked up with head CT scan as well as blood work. The patient has been found to have elevated ammonia levels up to 125, as well as significantly elevated blood sugars as high as 460. The patient has had microbiology sent, which showed no significant infection. The patient had urethral catheter placed and subsequently removed but was unable to urinate with elevated PVR's and had to have the catheter reinserted yesterday. Urology was consulted for further recommendations. The patient states he has been seen previously by urologist, but does not remember their name, for history of kidney stones. He says he has not had to have surgery in the past for kidney stones, he has passed them spontaneously. Currently denies any flank or abdominal pain. He states his urethral catheter is discomforting, but he is able to tolerate it. He denies any hematuria or dysuria. PAST MEDICAL HISTORY: 1. Cirrhosis. 2. Non-alcoholic steatohepatitis. 3. Esophageal varices. 4. Primary liver cancer. 5. Gastroesophageal reflux disease. 6. Chronic anemia. 7. History of kidney stones. 8. Type 2 diabetes. 9. Congestive heart failure. PAST SURGICAL HISTORY: 1. Tonsillectomy. 2. Cholecystectomy. 3. Appendectomy. ALLERGIES: Penicillin and aspirin. HOME MEDICATIONS: 1. Ambien 10 mg p.o. at bedtime. 2. Insulin 50 units in the morning, 50 at nighttime. 3. Klor-Con 20 mEq, 2 tablets p.o. b.i.d. 4. Duloxetine 30 mg p.o. daily. 5. Lasix 40 mg p.o. daily. 6. Isosorbide dinitrate 20 mg p.o. b.i.d. 7. Lactulose 10 mg oral solution. 8. Mirtazapine 50 mg p.o. at nighttime. 9. Nadolol 20 mg p.o. at bedtime. 10. Omeprazole 20 mg p.o. b.i.d. 11. Spironolactone 50 mg, 2 tablets p.o. daily. SOCIAL HISTORY: Denies tobacco, alcohol, illicit drug use. FAMILY HISTORY: Denies family history of malignancies. REVIEW OF SYSTEMS: A 12-point review of systems performed with all pertinent positives and negatives in HPI. PHYSICAL EXAMINATION: Vital Signs: Temperature 98.7 degrees, heart rate 107, blood pressure 140/62, oxygen saturation 99% on room air. General: No acute distress. Alert and oriented but slightly confused. HEENT: Normocephalic, atraumatic. Pupils equal, round, reactive to light. Mucous membranes moist. Respiratory: Good respiratory effort without audible wheezing or rales. Cardiovascular: No evidence of irregular rhythm. The patient does have a slight tachycardia. 1+ lower extremity edema, nonpitting. Abdomen: Soft, nontender, nondistended. No palpable masses or hepatosplenomegaly. Genitourinary: No suprapubic tenderness. No CVA tenderness. Urethral catheter in place with orthotopic meatus with slightly tight foreskin. Bilateral testicles palpated without masses or nodularity. Slight firmness present in the epididymis bilaterally, but no tenderness. A small hydrocele in the left hemiscrotum. Digital rectal exam showed a small prostate measuring approximately 30 g with no asymmetry or nodules. The patient had slight decreased rectal tone. No hemorrhoids or palpable rectal masses. Musculoskeletal: Moving all extremities with slight feebleness, had some shakes and is unsteady on this feet. Neurologic: Gross motor and sensory intact. SKIN: No obvious skin lesions. LABS: White blood cell count 5.5, hemoglobin 9, hematocrit 29.3, platelets 82,000. Sodium 127, potassium 3.5, chloride 95, bicarb 20, BUN 14, creatinine 0.6. Glucose 164, total bilirubin 2.58, alkaline phosphate 181, ammonium 79, AST 36, ALT 29. Urinalysis showed moderate blood, moderate leukocyte, wnr-[id number]-gf-count RBCs, and 2+ bacteria. ASSESSMENT AND PLAN: Mr. Ortiz is a 72-year-old with cirrhosis, non-alcoholic steatohepatitis, esophageal varices, primary liver cancer, gastroesophageal reflux disease, chronic anemia, history of kidney stones, type 2 diabetes, and history of congestive heart failure seen in consultation regarding urinary retention. The patient was admitted for confusion and altered mental status with disorientation. The patient seemingly is more oriented, but still is having a difficult time carrying on a conversation with me today. The patient is relatively efficient at describing his prior medical history, but is still intermittently confused. My concern is the patient continues to have difficulty with urination. The patient has decreased rectal tone as well as a relatively small prostate. The patient had postvoid residual yesterday at greater than 300. Uncertain what his baseline is. He denies significant voiding complaints at home. He does not take any medications for his prostate. The patient has failed 1 voiding trial and is asking to have his catheter removed. I talked with him, he says that he would be open to performing intermittent catheterization. I think that maybe a long-term benefit if he could get more manual dexterity. Watching him ambulate, he almost fell and appeared to have significant tremors. I feel like this would be difficult for him to do CIC at this time with his current mental state and physical condition. The patient does have help at home during the day. However, I am not sure how he would tolerate performing CIC on a regular basis. I think if he becomes less encephalopathic that he may have better manual dexterity to perform this. We will plan to leave catheter in until next week and would attempt voiding trial at that time. I think patient would benefit with continued indwelling catheter. The patient was having some confusion as well as lightheadedness. The patient currently is on Flomax 0.4 mg, which I think is reasonable. Would continue on this at this time. Would plan for a voiding trial next week. We will follow up urine culture, as it is still in lab. Will continue to monitor while inpatient. Please call with questions or concerns. cc: MD Flavio Maldonado MD [facility]
[2018-09-24] MEDS: HUMALOG SUBQ SCH ×2 (06:11→11:15)
--- NOTE | 2018-09-24 07:35 | PROGRESS NOTE ---
DATE: 09/24/2018 SUBJECTIVE: No acute events overnight. The patient's urethral catheter has been draining well with clear yellow urine, over 1.6 L recorded. The patient denies any urethral or perineal pain. The patient slept comfortably and states he is tolerating a diet. OBJECTIVE: Vital Signs: Temperature 98.7 degrees, heart rate 95, blood pressure 127/64, oxygen pressure 100% on room air. General: No acute distress. Resting comfortably in bed. Alert and oriented x3. Respiratory: Good respiratory effort without audible wheezing or rales. Abdomen: Soft, nontender, nondistended. No palpable masses or hepatosplenomegaly. Genitourinary: No suprapubic tenderness. No CVA tenderness. Urethral catheter in place draining clear yellow urine. Musculoskeletal: Moving all extremities. Neurologic: Gross motor and sensory intact. Slight delayed word finding however the patient was able to carry on appropriate conversation. ASSESSMENT AND PLAN: Mr. Ortiz is a 72-year-old with cirrhosis from nonalcoholic steatohepatitis, esophageal varices, primary liver cancer, gastroesophageal reflux disease, chronic anemia, history of kidney stones, type 2 diabetes, and congestive heart failure. The patient states that overall he is doing well. The patient has had indwelling catheter in place draining clear yellow urine. He denies any pain from this. The patient currently is on Flomax 0.4 mg. I recommend remaining on Flomax and continue with indwelling catheter until next week. Will schedule him for a voiding trial in the office and to follow-up afterwards. I think patient needs to continue to be ambulatory and regain some strength prior to next voiding trial. The patient did have decreased rectal tone on exam yesterday. Concerned this is related to his diabetes or underlying pathology. Patient was admitted for confusion and possible encephalopathy, and he has continued to regain some of his normal sensorium. I would continue with indwelling catheter at this time and follow up in the outpatient setting. The patient's prostate is not overly enlarged. However, he may have bladder outlet obstruction related to it. We will continue to monitor from a urologic standpoint. Please call with questions or concerns. cc: MD Flavio Maldonado MD [facility]
[2018-09-24] MEDS: NEOMYCIN PO SCH (09:01)
[2018-09-24] MEDS: LACTULOSE PO SCH (09:01)
[2018-09-24] MEDS: CALMOSEPTINE OINTMENT TOP SCH (09:01)
[2018-09-24] MEDS: CYMBALTA PO SCH (09:01)
[2018-09-24] MEDS: PRILOSEC PO SCH (09:01)
[2018-09-24] MEDS: VITAMIN B-12 PO SCH (09:01)
[2018-09-24] MEDS: LANTUS INSULIN SUBQ SCH (09:03)
[2018-09-24 11:13] VITALS: BP 116/67
--- NOTE | 2018-09-24 20:25 | DISCHARGE SUMMARY ---
ADMISSION DATE: 09/17/2018 DISCHARGE DATE: 09/24/2018 DISCHARGE DIAGNOSES: 1. Hepatic encephalopathy. 2. Diabetes mellitus out of control. 3. Acute urinary retention. 4. Nonalcoholic steatohepatitis. 5. Cirrhosis with ascites. 6. Esophageal varices. 7. Chronic anemia. 8. History of congestive heart failure. OPERATIVE PROCEDURES: None. CONSULTATIONS: Dr. Pereyra. HOSPITAL COURSE: This 72-year-old white male was admitted with acute confusion and weakness. He was brought into the hospital and found to have elevated ammonia levels as well as blood sugar that was wildly out of control. The patient was also a little bit dry. The patient was given several bags of IV fluids as well as a banana bag which he tolerated well. He was started back on his home medications and put on sliding scale insulin as well as his usual doses of Basaglar. The patient's blood sugar came under control after a couple days. His ammonia stayed up for a few days, but then eventually was slashed nearly in half by increasing his lactulose to twice a day. His bilirubin climbed just slightly during the hospitalization to around 2.3 but he was not jaundiced. As his hospitalization went on his hemoglobin equilibrated down to a level around 9.0 which I think is fairly close to his baseline. As the patient was just getting to the point of improved lucidity and better control of his laboratory parameters, we were informed by the nursing staff that he had difficulty urinating and had a postvoid residual of greater than 500. A Hare catheter was placed and Flomax was started. After a couple days, we removed the Hare catheter and tried another voiding trial. Unfortunately, due to certain inefficiencies on the floor, his bladder residual was not check for good 13 hours. At that time his residual was greater than 300 and the Hare catheter was replaced and Dr. Pereyra was consulted. Consultation with Dr. Pereyra ended with the recommendation that we should leave the Hare catheter in for a week, continue Flomax and he will have an outpatient voiding trial. I also discontinued the patient's mirtazapine as it has albeit rarely been associated with urinary retention in the elderly. Other medications were an increase in the patient's Basaglar to 54 units twice a day and an increase in his lactulose to 30 mL twice a day. Since the patient is going home with a Hare catheter I have given him some antibiotics to take for the next week until he has his voiding trial. There were no other major medication changes. The patient is going to follow up with Dr. Pereyra next week and follow in my office within 2 weeks. cc: Flavio Stearns MD
== END 2018-09-24 11:53 | disposition home or self-care (01) | DRG 442 ==
LOC: ED 09:12 → 3N 11:15
PROVIDERS: ADMIT Internal Medicine; ATTEND Internal Medicine

== ENCOUNTER 2018-11-14 18:19 | Inpatient (IN) ==
--- NOTE | 2018-11-14 19:18 | PROVIDER DOCUMENTATION ---
HPI-General Adult - General Chief Complaint: Fall Stated Complaint: FALLING, ARM INJURY Time Seen by Provider: 11/14/18 18:56 Source: patient, other (pediatric care coordinator present at bedside) Allergies/Adverse Reactions: Patient Allergies Allergy/AdvReac Type Severity Reaction Status Date / Time Penicillins Allergy Mild Unknown Verified 10/21/18 22:22 aspirin AdvReac Unknown Verified 10/21/18 22:22 Home Medications: Home Medication List Medication Instructions Recorded Confirmed Last Taken Type Omeprazole 20 mg PO BID 02/19/15 11/14/18 11/14/18 History Cyanocobalamin (Vitamin B-12) 500 mcg PO DAILY 07/09/17 11/14/18 11/14/18 History [B-12] Duloxetine [Cymbalta] 30 mg PO DAILY 07/09/17 11/14/18 11/14/18 History Multivit-Min/FA/Lycopen/Lutein 1 each PO DAILY 07/09/17 11/14/18 11/14/18 History [Centrum Silver Men Tablet] Nadolol [Corgard] 20 mg PO HS tablet 07/14/17 11/14/18 11/14/18 Rx Insulin Glargine [Lantus Insulin] 54 unit SUBQ BID unit 09/24/18 11/14/18 11/14/18 Rx Lactulose 30 ml PO BID udc 09/24/18 11/14/18 11/14/18 Rx Furosemide [Lasix] 40 mg PO BID 11/14/18 11/14/18 11/14/18 History Rifaximin [Xifaxan] 550 mg PO BID 11/14/18 11/14/18 11/14/18 History Spironolactone 50 mg PO BID 11/14/18 11/14/18 11/14/18 History - History of Present Illness -Gen Adult Nature of Presenting Problems: 73 YO M pmh for liver cancer being followed by [facility] brought in by inside parts sales for frequent falls. Radiocommunications Technician states he had awakened to find pt lying face down on the floor this morning, and then throughout the day he had fallen 2 more times. He tried to grab him before falling and gave the patient a skin tear on his right forearm. Radiocommunications Technician states his frequent falling has just increased in the past month. He falls mostly when he feels he has to go to the restroom. Denies LOC or seizure like activity. Quality of Pain: reports: other (pt complains of pain in right forearm where skin tear is) Timing: reports: still present Context/Activities at Onset: reports: light activity Modifying Factors: improves with: nothing Associated Symptoms: denies: cough, fever/chills, seizure Review of Systems - Adult - REVIEW OF SYSTEMS - ADULT Constitutional: denies: chills, fever Eyes: reports: no symptoms reported Respiratory: reports: no symptoms reported. denies: cough, dyspnea on exertion Gastrointestinal: reports: constipation. denies: abdominal pain Genitourinary: reports: no symptoms reported Integumentary: reports: skin sores/ulcer, other (multiple skin tears and abrasions on forearms) Past History - Adult - PAST MEDICAL HISTORY-ADULT Review of Records: reports: Old Records Reviewed, Social history reviewed & non- contributory. Major Childhood Illnesses: reports: denies history Cardiovascular: reports: HTN Respiratory: reports: denies history Gastrointestinal: reports: GI bleed, liver disease Obstetrical/Gynecological: reports: denies history Genitourinary: reports: denies history Musculoskeletal: reports: denies history Neurological: reports: denies history Psychiatric: reports: denies history Endocrine/Immune: reports: Diabetes Other Conditions: reports: denies history - PRIOR SURGERIES/PROCEDURES Surgical/Procedure History: denies: recent surgery - IMMUNIZATION STATUS Childhood Immunizations: See Nurse Assessment Flu Vaccine: NUTD - FAMILY HISTORY Family History: reviewed, not pertinent - SOCIAL HISTORY Smoking: non-smoker 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) Physical Exam-General - PHYSICAL EXAM-ADULT Initial Vital Signs Reviewed: Yes - CONSTITUTIONAL General Appearance: alert, no apparent distress - EYES Eyes: PERRL/EOMI, pink conjunctivae - NECK Neck: supple - RESPIRATORY Respiratory: lungs clear, normal breath sounds, no respiratory distress - CARDIOVASCULAR Cardiovascular: regular rate, rhythm, no edema - GASTROINTESTINAL (ABDOMEN) Abdominal Exam: non tender, soft - SKIN Integumentary: abrasion(s) - NEUROLOGIC Neurologic: grossly normal - PSYCHIATRIC Psych/Mental Status: normal mood/affect Progress - PLAN OF CARE/RESULTS Progress/Plan/Lab Results: Vital Signs - 8 hr 11/14/18 18:50 Temperature 97.9 F Pulse Rate 79 Respiratory Rate 18 O2 Sat by Pulse Oximetry 99 Orders Category Date Time Status Orthostatic Vital Signs NOW Care 11/14/18 19:12 Active Saline Loc NOW Care 11/14/18 19:13 Active CHEST-1 VIEW [RAD] Stat Exams 11/14/18 19:[address] HEAD W/O CONTRAST [CT] Stat Exams 11/14/18 19:14 Ordered AMMONIA [CHEM] Stat Lab 11/14/18 19:14 Uncollected CBC WITH ELECTRONIC DIFF [HEME] Stat Lab 11/14/18 19:13 Uncollected COMPREHENSIVE METABOLIC PANEL [CHEM] Stat Lab 11/14/18 19:13 Uncollected PRO B-NATRIURETIC PEPTIDE Stat Lab 11/14/18 19:15 Ordered PROLACTIN [HH] Stat Lab 11/14/18 19:13 Uncollected PROTIME WITH INR [COAG] Stat Lab 11/14/18 19:13 Ordered PTT [COAG] Stat Lab 11/14/18 19:13 Ordered TROPONIN T Stat Lab 11/14/18 19:13 Ordered TSH Stat Lab 11/14/18 19:13 Uncollected URINALYSIS W/POSS RFLX CULT [URINALYSIS] Stat Lab 11/14/18 19:13 Uncollected Result Diagrams: 11/15/18 06:40 11/15/18 06:40 - REASSESSMENT Reassessment #1 Time Reassessed: 21:00 Status: unchanged (labs reviewed. CXR wnl. CT head normal) - XRAY 1 XRAY Study: Chest Impression: Abnormal (stable chest exam. rib fractures seen- same as previous) Comparison with other Films: no changes (from 10/21/18) - CT/MRI 1 CT Study: Head Impression: Normal Comparison with other Films: no changes - CONSULTS/PCP/HOSPITALIST Notification #1 *Consult/PCP/Hospitalist*: Dr. Castillo Time Discussed: 21:30 Consult Disposition: Will see in ED Departure - Departure Date of Disposition Decision: 11/14/18 Time of Disposition Decision: 21:30 DIAGNOSIS: Physical deconditioning, Frequent falls, Hyponatremia, Hyperglycemia, Anemia, Rib fractures, Orthostatic hypotension Disposition: ADMITTED INPATIENT 09 Certified Medical Emergency: Emergent Condition: Stable - Critical Care Note This patient required my direct & personal management of CC.: No Attestation - Physician/ KELL Attestation The physician spent face to face time with patient:: Yes Advanced Practice Provider documentation review:: Supervising physician onsite and consulted in the evaluation and care of this patient. The physician did have a face to face encounter with the patient.
[2018-11-14 19:41] LABS: BASO# 0.01 X1000 (0.0-0.2); BASO% 0.1 % (0.0-0.8); EOS# 0.04 X1000 (0.0-0.7); EOS% 0.4 % (0.0-10.0); HEMATOCRIT 34.4 % (42.0-52.0); HEMOGLOBIN 10.8 g/dL (14.0-18.0); IMM GRAN# 0.02 X1000 (0.0-0.04); IMM GRAN% 0.2 % (0.0-0.5); LYMPH# 0.78 X1000 (1.2-3.4); LYMPH% 8.3 % (20.5-51.1); MCH 22.9 PG (27-31); MCHC 31.4 g/dL (33-37); MCV 72.9 FL (81-99); MONO# 0.81 X1000 (0.11-0.59); MONO% 8.6 % (1.7-9.3); MPV 10.8 FL (7.4-10.4); NEUT# 7.75 X1000 (1.4-6.5); NEUT% 82.4 % (42.2-75.2); PLT 149 X1000 (130-400); RBC 4.72 XMIL (4.7-6.1); RDW 20.1 % (11.5-14.5); WBC 9.41 X1000 (4.8-10.8)
[2018-11-14 19:46] LABS: INR 1.44; PROTIME 17.8 Seconds (11.0-16.0); PTT 32.8 Seconds (22.3-41.8)
--- NOTE | 2018-11-14 20:03 | Diag Imaging Result Doc PS360 ---
EXAM: CT HEAD W/O CONTRAST HISTORY: fall TECHNIQUE: CT head without contrast COMPARISON: 10/21/2018 FINDINGS: No parenchymal hemorrhage. No epidural or subdural hematoma. No subarachnoid hemorrhage. There are chronic microvascular ischemic changes. No mass identified on this noncontrasted exam. No hydrocephalus. No skull fracture. IMPRESSION: No hemorrhage. No injury. This exam was performed using automated exposure control, adjustment of mA or kV according to patient size, and/or use of iterative reconstruction technique. Electronically signed by Yamil Gross 11/14/2018 8:00 PM
--- NOTE | 2018-11-14 20:04 | Diag Imaging Result Doc PS360 ---
EXAM: CHEST-1 VIEW HISTORY: near syncope TECHNIQUE: Chest single view COMPARISON: 10/21/2018 FINDINGS: The lungs are well expanded. The heart is not enlarged. The vessels are not distended. There are no infiltrates. No effusion identified. Right lateral rib fractures again demonstrated. No pneumothorax. IMPRESSION: Stable chest Electronically signed by Yamil Gross 11/14/2018 8:02 PM
[2018-11-14 20:06] LABS: URINE SOURCE CLEAN CATCH
[2018-11-14 20:09] LABS: BILIRUBIN URINE NEGATIVE (NEGATIVE); BLOOD URINE NEGATIVE (NEGATIVE); COLOR YELLOW; GLUCOSE URINE >1000 mg/dL (NEGATIVE); KETONE URINE NEGATIVE (NEGATIVE); LEUKOCYTES URINE LARGE (NEGATIVE); NITRITE URINE NEGATIVE (NEGATIVE); PROTEIN URINE NEGATIVE (NEGATIVE); SP GRAVITY URINE 1.015; TURBIDITY URINE HAZY (CLEAR); UROBILINOGEN URINE NORMAL (NORMAL)
[2018-11-14 20:09] LABS: AGAP 14; ALB/GLOB RATIO 0.8; ALBUMIN 2.9 g/dL (3.5-5.0); ALKALINE PHOSPHATASE 209 U/L (32-122); BUN 20 mg/dL (8-22); CALCIUM 8.4 mg/dL (8.8-10.2); CHLORIDE 93 mmol/L (98-107); COSMO 281; ESTIMATED GFR > 60; GLUCOSE 380 mg/dL (70-104); GOT 33 U/L (10-34); GPT 26 U/L (10-44); POTASSIUM 5.3 mmol/L (3.5-5.1); SODIUM 131 mmol/L (136-145); TCO2 24 mmol/L (25-35); TOTAL BILIRUBIN 2.75 mg/dL (0.20-1.00); TOTAL PROTEIN 6.4 g/dL (6.3-8.3)
[2018-11-14 20:11] LABS: UR EPITHELIAL CELLS <10 /HPF (<10); URINE BACTERIA NEGATIVE /HPF; URINE RBC TNTC /HPF (<10); URINE WBC TNTC /HPF (<10)
[2018-11-14 20:19] LABS: URINE CRYSTALS NONE SEEN; URINE YEAST PRESENT
[2018-11-14] MEDS ORDERED: CORGARD PO SCH (21:00)
[2018-11-14] MEDS ORDERED: NS 1,000 ML IV ONE (21:02)
[2018-11-14] MEDS ORDERED: ZOFRAN IV PRN (21:58)
[2018-11-14] MEDS ORDERED: NS 1,000 ML IV SCH (22:00)
--- NOTE | 2018-11-14 22:11 | HISTORY AND PHYSICAL ---
PRIMARY CARE PHYSICIAN: Dr. Stearns. CHIEF COMPLAINT: Falls. HISTORY OF PRESENTING ILLNESS: A 73-year-old elderly male with a history of cirrhosis and liver cancer, diabetes mellitus type 2 and hypertension, who had presented to the emergency department with complaint of having falls for the past several weeks. Apparently he has been falling multiple times. As per family, he has been getting weak and unsteady. He was evaluated in the emergency department. Patient seemed frail and due to his presenting symptoms of weakness it was thought that we will place him for observation for further evaluation and management. At the time of my examination, patient had denied any headache, fever, chills, chest pain, shortness of breath but complained of feeling weak and not well. PAST MEDICAL HISTORY: Includes cirrhosis, liver cancer, diabetes mellitus type 2, hypertension. PAST SURGICAL HISTORY: Cholecystectomy. ALLERGIES: Penicillin. CURRENT MEDICATIONS: Include Cymbalta 30 mg p.o. daily, Lasix 40 mg p.o. b.i.d. Lantus 54 units subcu b.i.d., lactulose 30 mL p.o. b.i.d., nadolol 20 mg p.o. at bedtime, omeprazole 20 mg p.o. b.i.d., Xifaxan 550 mg p.o. b.i.d., spironolactone 50 mg p.o. b.i.d. SOCIAL HISTORY: No history of smoking, alcohol or illicit drug use. FAMILY HISTORY: Positive for coronary disease mother. REVIEW OF SYSTEMS: Fourteen point review of systems is as in HPI. Other systems negative. PHYSICAL EXAMINATION: GENERAL: Frail, elderly male who looks older than stated age. However he is without any respiratory distress. VITAL SIGNS: Temperature 97.9 degrees, pulse 79, respiration 18, blood pressure 124/76. HEENT: Atraumatic, normocephalic. Extraocular movements intact. PERRLA. NECK: No masses. CHEST: Clear to auscultation. CARDIOVASCULAR: Regular rate and rhythm. ABDOMEN: Soft. Positive bowel sounds. EXTREMITIES: No edema. NEUROLOGIC: He is awake, alert, oriented x2. : No bladder distention. SKIN: Warm. LABORATORIES AND STUDIES: WBCs 9.41, hemoglobin 10.8, hematocrit 34.4, platelets 149,000. Sodium 131, potassium 5.3, chloride 93, CO2 24, BUN is 20, creatinine is 1.0, glucose is 380. UA is nitrite negative, shows large leukocytes. ASSESSMENT: A 73-year-old male with a history of cirrhosis, liver cancer, diabetes mellitus type 2, and hypertension, had presented to emergency department due to patient having overall deconditioning and weakness. The patient apparently has been falling multiple times throughout the past several weeks. He was evaluated in the emergency department. Due to his presenting symptoms, will place him for observation for further evaluation and management. 1. Frequent falls. 2. Overall deconditioning. 3. Diabetes mellitus type 2 with hyperglycemia. 4. Cirrhosis/liver cancer. 5. Hypertension. PLAN: 1. We will admit patient to medical floor with telemetry. 2. We will check orthostatic blood pressure and pulse. 3. We will continue with gentle hydration. 4. Monitor blood glucose and put patient on sliding scale insulin regimen. 5. Monitor blood pressure closely. Resume antihypertensive agents. 6. The possibility of urinary tract infection. Will start patient on empiric antibiotics. 7. Check urine culture. 8. We will put patient on DVT prophylaxis SCD. 9. We will continue to follow and reassess. Make further recommendation based on patient's clinical course. cc: Alexandre Castillo MD
[2018-11-15] MEDS: HUMULIN R SUBQ SCH ×5 (01:12→21:54)
[2018-11-15] MEDS: ALDACTONE PO SCH ×3 (01:13→21:56)
[2018-11-15] MEDS: LACTULOSE PO SCH ×3 (01:14→21:56)
[2018-11-15] MEDS: ROCEPHIN 1 GM in NS 50 ML IV SCH ×2 (01:14→21:52)
[2018-11-15] MEDS: XIFAXAN PO SCH ×3 (01:14→21:56)
[2018-11-15] MEDS: LASIX PO SCH ×2 (01:14→09:09)
[2018-11-15] MEDS: PRILOSEC PO SCH ×3 (01:14→21:55)
[2018-11-15 07:35] LABS: BASO# 0.01 X1000 (0.0-0.2); BASO% 0.1 % (0.0-0.8); EOS# 0.01 X1000 (0.0-0.7); EOS% 0.1 % (0.0-10.0); HEMOGLOBIN 9.8 g/dL (14.0-18.0); LYMPH# 1.05 X1000 (1.2-3.4); LYMPH% 13.8 % (20.5-51.1); MCH 22.6 PG (27-31); MCHC 30.6 g/dL (33-37); MCV 73.9 FL (81-99); MONO# 0.74 X1000 (0.11-0.59); MONO% 9.7 % (1.7-9.3); MPV 11.3 FL (7.4-10.4); NEUT% 76.3 % (42.2-75.2); PLT 127 X1000 (130-400); RBC 4.33 XMIL (4.7-6.1); RDW 20.2 % (11.5-14.5); WBC 7.61 X1000 (4.8-10.8)
[2018-11-15 07:53] LABS: AGAP 11; BUN 19 mg/dL (8-22); CALCIUM 7.8 mg/dL (8.8-10.2); CHLORIDE 98 mmol/L (98-107); COSMO 274; ESTIMATED GFR > 60; GLUCOSE 225 mg/dL (70-104); POTASSIUM 4.2 mmol/L (3.5-5.1); SODIUM 132 mmol/L (136-145); TCO2 23 mmol/L (25-35)
--- NOTE | 2018-11-15 08:51 | PROGRESS NOTE ---
DATE: 11/15/2018 SUBJECTIVE: The patient's history is reviewed on the computer and with the patient. He states that he has been falling several times. He suffered multiple abrasions. No broken bones. At the time of my interview, the patient was undergoing orthostatic blood pressure testing in the room. OBJECTIVE: Vital Signs: The orthostatic blood pressure readings are not on the computer yet. Temperature 98.8 degrees, pulse rate is 66, blood pressure 127/45, 100 percent saturated on room air. In speaking with the nurse, his blood pressure dropped to a systolic of 100 when he sat. When he was stood up, his systolic pressure was in the 90s with no significant change in pulse rate. Physical Examination: The patient is alert. He seems reasonably oriented and identified me, and was able to converse at his baseline level. Cardiovascular is regular, almost bradycardic but still in the mid 60s. Lungs are clear. The patient has multiple abrasions and ecchymoses on his arms and hands. Laboratories: White cell count 7.6, hematocrit 32. Glucose was 225, BUN and creatinine normal. ASSESSMENT AND PLAN: 1. The patient clearly has orthostasis. I want to reduce his nadolol dose and we may have to adjust his spironolactone and Lasix doses in order to prevent dropping of blood pressure. He has a wide pulse pressure at baseline and likely his unsteadiness is caused by a low mean arterial pressure. 2. I am going to have to look through the remainder of his medications to see how they could be affecting his overall stability. 3. Urinalysis showed yeast and white cell products. He is on Rocephin. I am going to add fluconazole. We will monitor this situation as time goes on. 4. The patient will continue fingerstick blood sugar checks and sliding scale insulin. cc: Flavio Stearns MD
[2018-11-15] MEDS: VITAMIN B-12 PO SCH (09:09)
[2018-11-15] MEDS: CENTRUM SILVER PO SCH (09:09)
[2018-11-15] MEDS: CYMBALTA PO SCH (09:09)
[2018-11-15] MEDS: DIFLUCAN PO SCH (09:11)
[2018-11-15] MEDS: CORGARD PO SCH (21:56)
[2018-11-16] MEDS: HUMULIN R SUBQ SCH ×4 (06:17→22:25)
[2018-11-16] MEDS: XIFAXAN PO SCH ×2 (08:14→22:24)
[2018-11-16] MEDS: ALDACTONE PO SCH ×2 (08:14→22:24)
[2018-11-16] MEDS: CENTRUM SILVER PO SCH (08:14)
[2018-11-16] MEDS: LACTULOSE PO SCH ×2 (08:14→22:25)
[2018-11-16] MEDS: LASIX PO SCH (08:14)
[2018-11-16] MEDS: VITAMIN B-12 PO SCH (08:14)
[2018-11-16] MEDS: DIFLUCAN PO SCH (08:14)
[2018-11-16] MEDS: PRILOSEC PO SCH ×2 (08:14→22:24)
[2018-11-16] MEDS: CYMBALTA PO SCH (08:14)
--- NOTE | 2018-11-16 09:38 | PROGRESS NOTE ---
DATE: 11/16/2018 SUBJECTIVE: I spoke at length with the patient, and with his partner. They stated that for the last couple days he just could not get up and go. He had several episodes when they tried to get him up, that he just went completely stiff and was unresponsive for a moment. They would try to set him down, and he remained that way for 30 seconds to a minute until recovering his sensorium. I discussed with him his orthostatic changes, and blood pressure changes which might be contributing to this. OBJECTIVE: Vital Signs: 97.6, 70, 119/96 in the supine position. 100% saturated on room air. General: The patient is alert and operating at baseline. Lungs: Clear. Cardiovascular: Regular. Skin: The patient has multiple ecchymoses, abrasions, and a few skin tears on his arms and hands. Abdomen: His abdomen is not markedly swollen. Extremities: Show only trace peripheral edema if any. It is noted that the patient does not have asterixis. ASSESSMENT AND PLAN: 1. We have made adjustments in the patient's medications that hopefully will result in less in the way of orthostasis. I have rewritten the orthostatic blood pressure orders for 3 times daily instead of every 12 hours. 2. Physical Therapy has been consulted for gait and other assistance. 3. Urinalysis showed yeast. He is on Rocephin, but also on fluconazole. We will likely discontinue the Rocephin. 4. We will continue fingerstick blood sugar checks and monitor his blood sugar. 5. I discussed with the patient the seriousness of his multiple comorbidities, and that there is really nothing that we could do to make any of these go away, but we could try and optimize his treatment so that he gets the most out of life. Both he and his partner expressed understanding of this. cc: Flavio Stearns MD
[2018-11-16] MEDS: CORGARD PO SCH (22:24)
[2018-11-16] MEDS: ROCEPHIN 1 GM in NS 50 ML IV SCH (22:25)
[2018-11-17] MEDS: HUMULIN R SUBQ SCH (06:12)
[2018-11-17 08:04] LABS: BASO# 0.03 X1000 (0.0-0.2); BASO% 0.5 % (0.0-0.8); EOS# 0.01 X1000 (0.0-0.7); EOS% 0.2 % (0.0-10.0); HEMATOCRIT 32.6 % (42.0-52.0); HEMOGLOBIN 9.7 g/dL (14.0-18.0); LYMPH# 1.25 X1000 (1.2-3.4); LYMPH% 19.1 % (20.5-51.1); MCH 22.2 PG (27-31); MCHC 29.8 g/dL (33-37); MCV 74.8 FL (81-99); MONO# 0.69 X1000 (0.11-0.59); MONO% 10.5 % (1.7-9.3); MPV 10.5 FL (7.4-10.4); NEUT# 4.57 X1000 (1.4-6.5); NEUT% 69.7 % (42.2-75.2); PLT 118 X1000 (130-400); RBC 4.36 XMIL (4.7-6.1); RDW 20.5 % (11.5-14.5); WBC 6.55 X1000 (4.8-10.8)
[2018-11-17 08:13] LABS: AGAP 12; ALB/GLOB RATIO 0.8; ALBUMIN 2.6 g/dL (3.5-5.0); ALKALINE PHOSPHATASE 189 U/L (32-122); BUN 20 mg/dL (8-22); CALCIUM 7.8 mg/dL (8.8-10.2); CHLORIDE 93 mmol/L (98-107); COSMO 265; CREATININE 1.1 mg/dL (0.7-1.2); ESTIMATED GFR > 60; GLUCOSE 193 mg/dL (70-104); GOT 29 U/L (10-34); GPT 23 U/L (10-44); POTASSIUM 4.3 mmol/L (3.5-5.1); SODIUM 128 mmol/L (136-145); TCO2 23 mmol/L (25-35); TOTAL BILIRUBIN 2.11 mg/dL (0.20-1.00); TOTAL PROTEIN 5.9 g/dL (6.3-8.3)
[2018-11-17] MEDS: VITAMIN B-12 PO SCH (09:05)
[2018-11-17] MEDS: LANTUS INSULIN SUBQ SCH (09:05)
[2018-11-17] MEDS: PRILOSEC PO SCH ×2 (09:05→22:12)
[2018-11-17] MEDS: CYMBALTA PO SCH (09:06)
[2018-11-17] MEDS: LASIX PO SCH (09:06)
[2018-11-17] MEDS: LACTULOSE PO SCH ×2 (09:06→22:12)
[2018-11-17] MEDS: CENTRUM SILVER PO SCH (09:06)
[2018-11-17] MEDS: DIFLUCAN PO SCH (09:06)
[2018-11-17] MEDS: ALDACTONE PO SCH (09:06)
[2018-11-17] MEDS: XIFAXAN PO SCH ×2 (09:06→22:11)
[2018-11-17] MEDS: HUMALOG SUBQ SCH ×2 (10:58→16:57)
[2018-11-17] MEDS: CORGARD PO SCH (22:11)
[2018-11-18] MEDS: HUMALOG SUBQ SCH ×5 (00:42→20:29)
--- NOTE | 2018-11-18 01:14 | PROGRESS NOTE ---
DATE: 11/17/2018 SUBJECTIVE: The patient was asleep this morning but was easily aroused, and seemed to be functioning at his normal level of mentation. He was alert and pleasant once he woke up. OBJECTIVE: Vital signs: Throughout the day today the patient had orthostatic vital signs, all of which showed that he tilted pretty heavily with standing, going from systolics in the 120s to systolics in the low 80s. Lungs are clear. Cardiovascular is regular. Abdomen is nondistended. There is no peripheral edema. Neuropsychiatric: As stated earlier, the patient is alert and appropriate. He does not have any asterixis when tested. LABORATORY DATA: White cell count 6.5, hematocrit 32.6. Sodium is 128, BUN 20, creatinine 1.1, glucose 218, total bilirubin 211, alkaline phosphatase 189. Ammonia was 76. ASSESSMENT AND PLAN: 1. It does not appear that our adjustments in medications have thus far made any difference in his orthostatic blood pressure and orthostatic hypotension. We will continue to check this. I have lowered his dose of spironolactone. I may need to discontinue his nadolol altogether. I will have to look into research to see if something like midodrine would be appropriate for use in someone with liver failure, but I very much doubt that it would be indicated for use. 2. Physical therapy has been instituted. 3. Urinalysis and culture showed yeast. We discontinued Rocephin. We will continue fluconazole. 4. Despite starting the patient back on 24 units of Lantus this morning, his fingerstick blood sugars are still elevated. He was taking quite a bit more insulin at home. I am not sure what to make of this. cc: Flavio Stearns MD
[2018-11-18] MEDS: CENTRUM SILVER PO SCH (09:18)
[2018-11-18] MEDS: LASIX PO SCH (09:18)
[2018-11-18] MEDS: CYMBALTA PO SCH (09:20)
[2018-11-18] MEDS: DIFLUCAN PO SCH (09:21)
[2018-11-18] MEDS: VITAMIN B-12 PO SCH (09:22)
[2018-11-18] MEDS: XIFAXAN PO SCH ×2 (09:23→20:28)
[2018-11-18] MEDS: PRILOSEC PO SCH ×2 (09:25→20:28)
[2018-11-18] MEDS: ALDACTONE PO SCH (09:25)
[2018-11-18] MEDS: PROAMATINE PO SCH ×3 (09:26→20:28)
[2018-11-18] MEDS: LACTULOSE PO SCH ×2 (09:27→21:00)
[2018-11-18] MEDS: LANTUS INSULIN SUBQ SCH (09:31)
--- NOTE | 2018-11-18 12:21 | PROGRESS NOTE ---
DATE: 11/18/2018 SUBJECTIVE: The patient has no complaints. He stated that he wanted to go home. I discussed with the patient and with his friend that his blood pressure was still dropping too precipitously for me to feel comfortable for him to go home and function as he was previously. OBJECTIVE: Vital Signs: Temperature 98.0, pulse 73, respirations 18, blood pressure 137/57, saturating 100% on room air. At 7:45, they performed orthostatic blood pressure measurements. His systolic pressure when supine was 115. When he stood up, it was 81. General: The patient is alert and functioning at baseline. He is calm and seems oriented. Extremities: No peripheral edema. Abdomen: No significant increase in edema. ASSESSMENT AND PLAN: 1. Multiple adjustments have been made on the patient's medication in regard to his cirrhosis. I am going to discontinue his nadolol, and I am going to add some low-dose midodrine to his now reduced diuretic regimen, and will see if this will maintain him and keep his blood pressure at a safer level. 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 2. Physical therapy. Will continue. The patient ambulated 40 feet yesterday with the use of a gait belt, and seemed to do reasonably well sitting up. 3. Urine culture grew yeast. He is still on fluconazole. 4. The patient's blood sugar this morning was 148, which is the best it has been. We will continue to monitor fingerstick blood sugar readings, and adjust insulin as appropriate. cc: Flavio Stearns MD
[2018-11-19] MEDS: HUMALOG SUBQ SCH ×4 (06:25→21:30)
[2018-11-19 07:21] LABS: BASO# 0.03 X1000 (0.0-0.2); BASO% 0.5 % (0.0-0.8); EOS# 0.01 X1000 (0.0-0.7); EOS% 0.2 % (0.0-10.0); HEMOGLOBIN 10.7 g/dL (14.0-18.0); IMM GRAN# 0.03 X1000 (0.0-0.04); IMM GRAN% 0.5 % (0.0-0.5); LYMPH# 1.15 X1000 (1.2-3.4); LYMPH% 17.7 % (20.5-51.1); MCH 22.9 PG (27-31); MCHC 30.6 g/dL (33-37); MCV 74.8 FL (81-99); MONO# 0.73 X1000 (0.11-0.59); MONO% 11.2 % (1.7-9.3); MPV 9.8 FL (7.4-10.4); NEUT# 4.56 X1000 (1.4-6.5); NEUT% 69.9 % (42.2-75.2); PLT 123 X1000 (130-400); RBC 4.68 XMIL (4.7-6.1); RDW 20.9 % (11.5-14.5); WBC 6.51 X1000 (4.8-10.8)
[2018-11-19 08:17] LABS: AGAP 13; ALB/GLOB RATIO 0.7; ALBUMIN 2.6 g/dL (3.5-5.0); ALKALINE PHOSPHATASE 214 U/L (32-122); BUN 20 mg/dL (8-22); CALCIUM 7.9 mg/dL (8.8-10.2); CHLORIDE 95 mmol/L (98-107); COSMO 269; ESTIMATED GFR > 60; GLUCOSE 158 mg/dL (70-104); GOT 30 U/L (10-34); GPT 23 U/L (10-44); POTASSIUM 4.4 mmol/L (3.5-5.1); SODIUM 131 mmol/L (136-145); TCO2 23 mmol/L (25-35); TOTAL BILIRUBIN 2.15 mg/dL (0.20-1.00); TOTAL PROTEIN 6.2 g/dL (6.3-8.3)
[2018-11-19] MEDS: LACTULOSE PO SCH ×2 (10:53→21:29)
[2018-11-19] MEDS: CENTRUM SILVER PO SCH (10:54)
[2018-11-19] MEDS: LASIX PO SCH (10:54)
[2018-11-19] MEDS: VITAMIN B-12 PO SCH (10:54)
[2018-11-19] MEDS: DIFLUCAN PO SCH (10:54)
[2018-11-19] MEDS: PROAMATINE PO SCH ×2 (10:54→17:03)
[2018-11-19] MEDS: CYMBALTA PO SCH (10:54)
[2018-11-19] MEDS: XIFAXAN PO SCH ×2 (10:54→21:30)
[2018-11-19] MEDS: PRILOSEC PO SCH ×2 (10:54→21:30)
[2018-11-19] MEDS: ALDACTONE PO SCH (10:54)
--- NOTE | 2018-11-19 10:56 | PROGRESS NOTE ---
DATE: 11/19/2018 SUBJECTIVE: The patient was started on midodrine yesterday and his vital signs looked very hopeful in the afternoon. The patient and his friend related that last night the patient needed to get up to go to the bathroom and when he was stood up by the nurse he had another 1 of the episodes in which he was unresponsive and his muscles were locked. He was absolutely immovable and unhandleable at that point. They tried to ease him back to his bed but he was stiff as a board. There was no shaking noted. No loss of bowel continence or urinary continence. He recovered in a few seconds as per my previous narratives. It was noted this morning he was markedly orthostatic again. OBJECTIVE: Vital signs: This morning, supine blood pressure is 120/64, standing blood pressure was 68/46, baseline blood pressure at 5 a.m. this morning in the supine position was 127/67. Temperature is 98.4, pulse rate 69, respirations 14 and unlabored. PHYSICAL EXAMINATION: General: The patient is alert. He seems oriented and operating at baseline. Lungs: Clear. Cardiovascular: Regular. Abdomen: Not distended. There is no increase in ascites. Extremities: There is no peripheral edema. LABORATORY: White cell count 6.5, hematocrit 35.0. Sodium 131, BUN 20, creatinine 1.0, blood sugar is 158, total bilirubin is 2.15, alkaline phosphatase 214. Ammonia level was pending. ASSESSMENT AND PLAN: 1. I am going to change the patient's midodrine dosing to q.8 hours hopefully to get a more even spread of its effect throughout the day and the night. We are going to continue off of nadolol and continue to check orthostatic blood pressure readings. The patient's diuretic doses have been reduced as well. 2. The patient is on fluconazole, is likely nearing the end of that treatment course, and we will discontinue shortly. 3. The patient continues to progress with Physical Therapy and was able to walk in the halls yesterday with the walker and gait belt. This sounds very promising. 4. The patient's blood sugar still continues to fluctuate. Despite being put back on 24 units of Lantus, he sill required an additional 24 units of sliding scale in order to maintain reasonable control. It is rather inexplicable that he requires so much more insulin at home. We will increase his dose to 50 units daily and monitor the results and add additional doses as appropriate or necessary. 5. The patient continues to require inpatient monitoring due to his marked orthostasis and difficulty with blood pressure and blood sugar management. I do not feel that it is safe for him to return home at present with continuing orthostasis. I do not think this is necessarily a rehab situation or a problem with overall weakness as much as it is dealing with the side effects of medications, which are necessary to treat his hepatic encephalopathy and cirrhosis. cc: Flavio Stearns MD MTDD
[2018-11-19] MEDS: LANTUS INSULIN SUBQ SCH (11:00)
[2018-11-20] MEDS: PROAMATINE PO SCH ×3 (01:49→16:43)
[2018-11-20] MEDS: HUMALOG SUBQ SCH ×4 (06:30→21:30)
[2018-11-20] MEDS: CENTRUM SILVER PO SCH (09:05)
[2018-11-20] MEDS: ALDACTONE PO SCH (09:05)
[2018-11-20] MEDS: DIFLUCAN PO SCH (09:06)
[2018-11-20] MEDS: LACTULOSE PO SCH ×2 (09:06→21:30)
[2018-11-20] MEDS: CYMBALTA PO SCH (09:06)
[2018-11-20] MEDS: LANTUS INSULIN SUBQ SCH (09:06)
[2018-11-20] MEDS: PRILOSEC PO SCH ×2 (09:07→21:29)
[2018-11-20] MEDS: LASIX PO SCH (09:07)
[2018-11-20] MEDS: VITAMIN B-12 PO SCH (09:08)
[2018-11-20] MEDS: XIFAXAN PO SCH ×2 (09:08→21:29)
--- NOTE | 2018-11-20 09:33 | PROGRESS NOTE ---
DATE: 11/20/2018 This is a patient of Dr. Manjeet Stearns. A 73-year-old who admitted on 11/15/2018 with history of cirrhosis of the liver and liver cancer, diabetes mellitus type 2, hypertension, presented to the emergency department with complaint of having falls in the past several weeks, several falls. Apparently, he has been falling multiple times. The patient states he is getting weak and unsteady, a little bit of confusion as well and seemed to have significant orthostasis. Past medical history again includes cirrhosis of the liver, liver cancer, diabetes mellitus type 2, hypertension, status post cholecystectomy. PHYSICAL EXAMINATION: General: He is sitting up in the bed. He says he feels better. His son feels like he is doing better. Vital Signs: Temperature 97.8 degrees, pulse 74, respirations 14, blood pressure 125/55. HEENT: Pupils are equal and round. Lungs: Clear in all lung lópez. Cardiovascular: Regular rhythm and rate without murmur or S3. Abdomen: Soft. Skin: Warm and dry. Urine output is 800 mL. ASSESSMENT AND PLAN: 1. Dr. Stearns has put him on midodrine dosing q.8 hours, I think 5 mg and has stopped the nadolol and continues to check orthostatics. He does seem to feel better. 2. Patient is on fluconazole and he seems to be improving. I believe this was for oral thrush. 3. Continue physical therapy. Continue to work on his strength and deconditioning. 4. Blood sugars continue to fluctuate. He has been put back on his Lantus insulin. His blood sugars last three, 158, 265, 136. Electrolytes from yesterday: Sodium 131, potassium 4.4, chloride 95, bicarb was 23, BUN 20, creatinine 1.0. His albumin 2.6. Blood counts: White count 6510, hematocrit 35, hemoglobin 10, platelet count 123,000. REVIEW OF ORDERS: He is on cyanocobalamin 500 mcg p.o. daily, Cymbalta 30 mg a day, Diflucan 100 mg p.o. daily, Lasix 40 mg a day, Lantus insulin 50 units subcutaneous daily, lactulose 30 mL b.i.d., midodrine which is ProAmatine 5 mg p.o. q.8 hours, multivitamin 1 a day, Prilosec 20 mg twice a day, rifaximin 550 mg p.o. b.i.d., and spironolactone 50 mg a day. Note that his ammonia level was only 59. Continue to follow his blood pressures, orthostasis. His latest numbers sitting down, pulse is 80, blood pressure 93/59, standing pulse 79, blood pressure 67/41 and then supine pulse is 76, blood pressure 118/62. cc: MD Flavio Haynes MD
[2018-11-21] MEDS: PROAMATINE PO SCH ×3 (00:12→17:06)
[2018-11-21] MEDS: HUMALOG SUBQ SCH ×4 (06:03→21:17)
[2018-11-21] MEDS: LACTULOSE PO SCH ×2 (09:32→22:50)
[2018-11-21] MEDS: PRILOSEC PO SCH ×2 (09:32→21:17)
[2018-11-21] MEDS: CYMBALTA PO SCH (09:32)
[2018-11-21] MEDS: DIFLUCAN PO SCH (09:32)
[2018-11-21] MEDS: XIFAXAN PO SCH ×2 (09:32→21:17)
[2018-11-21] MEDS: LASIX PO SCH (09:32)
[2018-11-21] MEDS: ALDACTONE PO SCH (09:32)
[2018-11-21] MEDS: VITAMIN B-12 PO SCH (09:32)
[2018-11-21] MEDS: CENTRUM SILVER PO SCH (09:33)
[2018-11-21] MEDS: LANTUS INSULIN SUBQ SCH (09:33)
--- NOTE | 2018-11-21 10:15 | PROGRESS NOTE ---
DATE: 11/21/2018 SUBJECTIVE: This is a patient of Dr. Flavio Stearns. He said he does not feel as good today. Yesterday, he had a better day. Today, he just woke up, had some nausea. The Zofran seemed to help. Apparently, he had some nausea last night as well. He is awake and alert, and oriented. Just main complaint is some nausea going on. OBJECTIVE: Temperature 97.8 degrees, pulse 76, respirations 20, blood pressure 141/66. Pupils are equal and round. Lungs are clear in all lung lópez. Cardiovascular Examination: Regular rhythm and rate without murmur or S3. Abdomen is soft. Skin is warm and dry. ASSESSMENT AND PLAN: 1. Dr. Stearns had put him on some midodrine 5 mg every 8 hours to see if it would help with his blood pressure. Last three blood pressures were 125/55, 117/62, 141/66. Orthostatics, last set sitting, pulse was 88, blood pressure 127/52; standing, pulse 95, blood pressure 90/48; and supine, pulse 76, blood pressure 141/66, which is substantially better. 2. Nausea. We will continue the Zofran. I do not know if it is possible, he could have some underlying gastritis. He is on Prilosec 20 mg twice a day. 3. History of cirrhosis of the liver. He is on rifaximin and we are giving him spironolactone. He takes Lasix 40 mg daily. His hematocrit is stable at 35, hemoglobin 10. Blood sugars are coming down a little bit. Last three were 357, 273, 142. Continue present regimen. I do not see any changes at this point. cc: MD Flavio Haynes MD
[2018-11-22] MEDS: PROAMATINE PO SCH ×3 (01:30→17:01)
[2018-11-22] MEDS: HUMALOG SUBQ SCH ×4 (06:25→21:31)
[2018-11-22] MEDS: CYMBALTA PO SCH (08:10)
[2018-11-22] MEDS: VITAMIN B-12 PO SCH (08:10)
[2018-11-22] MEDS: PRILOSEC PO SCH ×2 (08:10→21:30)
[2018-11-22] MEDS: XIFAXAN PO SCH ×2 (08:10→21:30)
[2018-11-22] MEDS: LASIX PO SCH (08:10)
[2018-11-22] MEDS: CENTRUM SILVER PO SCH (08:10)
[2018-11-22] MEDS: ALDACTONE PO SCH (08:10)
[2018-11-22] MEDS: LANTUS INSULIN SUBQ SCH ×2 (08:10→21:31)
[2018-11-22] MEDS: LACTULOSE PO SCH ×2 (08:11→21:30)
--- NOTE | 2018-11-22 09:36 | PROGRESS NOTE ---
DATE: 11/22/2018 SUBJECTIVE: The notes from the weekend were reviewed. The patient had improvement in blood pressure and orthostatics but had an episode of nausea Thursday night and did not participate in physical therapy on Thursday, which is unfortunate. The patient and his partner requested a neurology consult and further study given the patient's history of multiple falls, multiple head injuries, and continued balance difficulty. I discussed the multifactorial origin of most of these things, but they would like a subspecialist opinion on the matter. OBJECTIVE: 97.8, 80, 111/63, 100% saturated on room air. Last orthostatics showed standing blood pressures dropping to a systolic of 107, which is a marked improvement. Physical Examination: The patient is alert. He is operating at his baseline. He perseverates on certain issues but is generally able to communicate normally. Lungs: Clear. Cardiovascular: Regular. Abdomen: Shows slight fluid distention but nothing out of the ordinary for him. He has maybe a trace of edema in the lower extremities in dependent areas. Laboratory: No laboratory was drawn over the weekend. ASSESSMENT AND PLAN: 1. The patient's midodrine seems to be keeping his blood pressure at more reasonable levels. He is still orthostatic but none of the precipitous drops have taken place over the weekend that I could see. We will continue this medication along with reduced doses of spironolactone and Lasix. Hopefully, it will also add to his stability. 2. We are going to discontinue the patient's fluconazole. He has had over a week of that for his fungal urinary tract infection. 3. The patient's physical therapy notes would indicate reasonable progression in his gait. The patient himself thinks that it is a "waste of time". I tried to stress to him that the crux of his problems was that when he stood up, he would fall down frequently. I tried to stress the importance of physical therapy, maintaining his strength and balance. Hopefully, he will be able to participate today. 4. The patient and family's request for neurological consultation will be undertaken. I am going to order an MRI of the brain. My general feeling is that with all of his comorbid disease, that there is not one single factor that is contributing to his imbalance and falls, but multiple ones. Hopefully, with appropriate medical management, we can minimize his risk. The patient was not enthused at all about the possibility of rehab or nursing stay. Unfortunately, his partner still has a job and he is outside of the home for most of the day and does not feel like the patient is stable enough to be there without some type of assistance for help. 5. The patient's blood sugar has still been elevated. I am going to put him on Lantus 40 units twice daily and continue to monitor with sliding scale insulin. cc: Flavio Stearns MD
--- NOTE | 2018-11-22 13:44 | Diag Imaging Result Doc PS360 ---
EXAM: MRI BRAIN W/WO CONTRAST INDICATION: multiple falls, loss of memory COMPARISON: 11/15/2012 FINDINGS: There is no evidence of acute infarct. There are a few tiny subcortical T2/FLAIR hyperintensities that probably relate to minimal white matter microangiopathy. The right and left putamen are slightly hyperintense on precontrast T1. This hyperintensity extends to the cerebral peduncles. Note this is completely stable. It is nonspecific finding that can be seen with normal calcium deposition due to aging or a wide variety of metabolic abnormalities. There is no discrete intracranial mass, mass effect, or intracranial hemorrhage. There is no evidence of abnormal intracranial enhancement. There is mild mucosal thickening at the floor the left maxillary sinus. There is fluid in the left eustachian tube seen incidentally. Surrounding soft tissues are essentially unremarkable, otherwise. IMPRESSION: 1.Very mild increased T1 signal involving the putamen bilaterally that is stable as compared to 2012. Please see above discussion. 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 3.Small amount of fluid noted in the eustachian tube incidentally on the left. Electronically signed by Stevan Vora 11/22/2018 1:42 PM
[2018-11-23] MEDS: PROAMATINE PO SCH ×3 (00:03→16:10)
--- NOTE | 2018-11-23 06:36 | CONSULTATION ---
DATE OF CONSULTATION: 11/22/2018 REASON FOR CONSULTATION: Falls. HISTORY OF PRESENT ILLNESS: This is a 73-year-old male with history of liver cirrhosis and cancer that is in remission, type 2 diabetes, and hypertension. He reports that over the last six weeks or so he has had multiple falls. He does not know of what may be causing his falls. He is not tripping on objects. He does not fall in any particular direction. He does not lose consciousness. They are not always associated with positional change per the patient. He says he will get up or maybe has been up for a couple minutes, then sometimes but not always he feels dizzy and generally weak and falls. Again, no loss of consciousness. There has not been witnessed seizure activity. He denies bowel or bladder difficulties or changes. No back or neck pain. He denies numbness to me. He denies weakness to me. Sometimes his history is a bit inconsistent. He denies headaches or visual changes. While hospitalized, he has been found to have significant orthostasis with repeated checks. Several medication adjustments have been made reducing diuretics and adding midodrine. I believe it looks as though the midodrine has helped to some degree. He has had a course of fluconazole for a urinary tract infection. He has been working with physical therapy. Blood sugars have been elevated in the mid to upper 200s, and that is being managed. There has not been report of personal history of major neurologic event, stroke or seizure. He cannot tell me details regarding his cancer history. PAST MEDICAL HISTORY: Cirrhosis of the liver, a liver cancer that is in remission. Diabetes type 2. Hypertension. Cholecystectomy. FAMILY HISTORY: Positive for coronary disease. SOCIAL HISTORY: He lives with his partner. He has never smoked or drank alcohol. No illicit's. He is retired from working on the [employer]. ALLERGIES: Listed to penicillins and aspirin in the chart. MEDICATIONS: Home and current medications reviewed in the chart. REVIEW OF SYSTEMS: Balance of 12 conduction is otherwise negative except that detailed in the HPI. PHYSICAL EXAMINATION: Vital Signs: T-max today of 100.1. Otherwise, afebrile. Blood pressure 115/67, pulse 90s, respirations 19 and 100% on room air. Orthostatic vital signs were reviewed. General: Mr. Ortiz is supine in bed. Awake, alert, and oriented. He follows simple commands and slowly follows a single complex command. He is spontaneous, but slowed in his reactions and conversation. No language disturbance detected on brief bedside testing. HEENT: Pupils are equal, round, and reactive to bright light. There is at times some squinting of the left eye. Visual lópez were a bit difficult on testing, but I did not detect an obvious inconsistent deficit. He has full ocular movements with the exception of limited upward gaze. Face symmetric with equal activation. Tongue is midline. Palate elevates symmetrically. Neurologic: Shoulder shrug is full. Tone is equal in the limbs. Power is preserved in the arms and legs as tested. He has a length dependent loss to sensory modalities of pinprick, temperature, and vibration. He also does poorly with joint position sense bilaterally. Reflexes are absent at the ankles and knees as well as the wrists bilaterally. Trace to 1+ biceps bilaterally. There is no clonus. Plantar response is silent bilaterally. Rapid alternating movements are slowed bilaterally, and there is some perseveration during testing. He performed [id number] reasonably well bilaterally. DIAGNOSTICS: MRI of the brain with and without contrast showing very mild increased T1 signal involving the putamen bilaterally that is stable compared to 2013. Suggestion of very minimal white matter microangiopathy, and small amount of fluid in the Eustachian tube on the left. Head CT showing no acute findings. LABORATORY: Labs reviewed in the chart and as detailed above. ASSESSMENT AND PLAN: A 73-year-old male with history of liver cirrhosis, liver cancer that is in remission, and diabetes who is admitted with repeated falls that began around 6 weeks or so ago. Findings have been significant for orthostasis with repeated blood pressure readings, and that is being addressed with medication reduction and the addition of midodrine. He has clinical findings of polyneuropathy. Also of note, he is diabetic with uncontrolled blood glucose levels. I agree that his problem is most likely multifactorial. I think it would be reasonable to obtain EMG and nerve conduction studies.This could possibly be done in the hospital if he is going to be here though I am not certain about that, and would have to check. Otherwise, we could see him as an outpatient if he is well enough to go home. I think the neuropathy is at least a contributing factor. Imaging findings are noted, but have been stable for many years. Thank you for the consultation. cc: Leigh M. MD Flavio West MD [facility]
[2018-11-23] MEDS: HUMALOG SUBQ SCH ×3 (06:38→16:10)
[2018-11-23] MEDS: LANTUS INSULIN SUBQ SCH (06:38)
[2018-11-23] MEDS: LASIX PO SCH (09:44)
[2018-11-23] MEDS: PRILOSEC PO SCH (09:45)
[2018-11-23] MEDS: CENTRUM SILVER PO SCH (09:45)
[2018-11-23] MEDS: XIFAXAN PO SCH (09:45)
[2018-11-23] MEDS: CYMBALTA PO SCH (09:45)
[2018-11-23] MEDS: ALDACTONE PO SCH (09:45)
[2018-11-23] MEDS: VITAMIN B-12 PO SCH (09:45)
[2018-11-23] MEDS: LACTULOSE PO SCH (09:48)
[2018-11-23 11:59] VITALS: BP 114/61
--- NOTE | 2018-11-24 09:46 | DISCHARGE SUMMARY ---
ADMISSION DATE: 11/15/2018 DISCHARGE DATE: 11/23/2018 DISCHARGE DIAGNOSES: 1. Frequent falls from standing. 2. Orthostatic hypotension. 3. Cirrhosis of the liver. 4. Insulin-dependent diabetes mellitus with hyperglycemia. 5. Gait instability. CONSULTATIONS: Leigh West MD HOSPITAL COURSE: The patient was admitted after having multiple falls. The fall which culminated in his admission was 1 in which he was found by his partner at home in the floor for an unknown length of time. When they tried to stand him up, he became rigid and stiff and was unresponsive for a number seconds until he was sat down and then this gradually resolved and he had a return of his normal sensorium at that time. According to the patient's partner, this has occurred multiple times during these events where he has fallen. He has actually struck his head multiple times, he has fractured ribs, and this has become a serious issue. The patient was admitted to the hospital for workup. It was noted almost immediately that he had significant orthostatic hypotension with systolic blood pressures in the 70s. As a result of those orthostatic changes, we first decreased his nadolol, then discontinued it completely. I reduced his dosage of spironolactone and Lasix, this still resulted in significant orthostatic changes. After some research, it was decided to add midodrine in low doses to his regimen. Further measurements of orthostatic blood pressure measurements showed that his blood pressure would still drop, but not as precipitously and he would generally maintain a mean arterial pressure sufficient for adequate circulation. He only had 1 other episode similar to that one from admission during his hospitalization. We had physical therapy involved and he did quite well with their assistance in walking 100 feet or more with a walker and minimal supervision. We had multiple discussions about these issues and we felt because the patient was eagerly desirous to return home, his partner would take off the rest of the week and monitor him in the house with his new medication regimen. He is to have follow up within 1 to 2 weeks in my office and he has regular follow up with his liver doctor in [place]. The patient's blood sugar was actually quite well controlled initially, but then as time went on he ate better, he continued to have hyperglycemia. We had initially left off his Lantus insulin but then gradually added it back at the time of discharge. He was on 40 units twice daily of the Lantus with sliding scale and this still did not seem adequate for overall control. At home he had been on 54 units, and he may end up back on that dose at the time of discharge. DISCHARGE MEDICATIONS: At the time of discharge, the patient's medications include the following: Vitamin B12 sublingual 500 mcg p.o. daily, duloxetine 30 mg p.o. daily, furosemide 40 mg p.o. daily, insulin glargine 40 to 54 units q.12 hours, lactulose 30 mL p.o. b.i.d., midodrine 5 mg p.o. q.8 hours, multivitamin p.o. daily, omeprazole 20 mg p.o. b.i.d., Xifaxan 550 mg p.o. b.i.d., spironolactone 50 mg p.o. daily. FOLLOWUP INSTRUCTIONS: Followup visit within 2 weeks in my office. cc: Flavio Stearns MD
== END 2018-11-23 17:12 | disposition home or self-care (01) | DRG 312 ==
LOC: ED 18:19 → 3N 22:31 → INTOOBSV 22:31 → SUATTDRO 11-15 15:27
PROVIDERS: ADMIT Internal Medicine; ATTEND Internal Medicine